=== PATIENT | male | born 1945 | race Caucasian/White ===

== ENCOUNTER 2020-06-17 10:41 | Outpatient (CLI) | payer MEDICARE, MEDICAID, SELFPAY ==
--- NOTE | 2020-06-17 10:55 | XR_ITS ---
WS: [id number] FOOT RIGHT TECHNIQUE: 3 views of the right foot CLINICAL INFORMATION: PAIN IN FOOT, HEEL PAIN COMPARISON: None. FINDINGS: Hallux valgus. Mild degenerative arthritis in the mid foot at the TMT joints. Normal phalanges. No ac brayden fractures. Plantar calcaneal spurring. Achilles enthesophyte. XR/XR foot RT min 3V* [id number] IMPRESSION: 1. Plantar calcaneal spurring with Achilles enthesophyte. 2. Hallux valgus. 3. No acute fractures.
== END 2020-06-17 10:42 | disposition home or self-care (01) ==
LOC: RADWPI 10:50
PROVIDERS: PCP Internal Medicine; Visit Provider Nurse Practitioner Family
DX: M79.671 Pain in right foot (principal); M77.31 Calcaneal spur, right foot; M76.61 Achilles tendinitis, right leg; M20.11 Hallux valgus (acquired), right foot
CPT/HCPCS: 73630

== ENCOUNTER → 2020-07-30 09:52 | Outpatient (BNVA) | payer MEDICARE, MEDICAID, SELFPAY | PROVIDERS: PCP Internal Medicine; Referring Provider Nurse Practitioner Family; Visit Provider Podiatrist Foot & Ankle Surgery | DX: M19.071 Primary osteoarthritis, right ankle and foot (principal); M79.671 Pain in right foot | CPT/HCPCS: 73630 ==

== ENCOUNTER 2020-09-08 09:04 | Outpatient (CLI) | payer MEDICARE, MEDICAID, SELFPAY | END 2020-09-08 09:05 | disposition home or self-care (01) | LOC: SPT 09:04 | PROVIDERS: PCP Internal Medicine; Visit Provider Podiatrist Foot & Ankle Surgery | DX: Z46.89 Encounter for fitting and adjustment of other specified devices (principal); M65.28 Calcific tendinitis, other site | CPT/HCPCS: 97760; L4397 ==

== ENCOUNTER 2022-07-21 10:53 | Outpatient (CLI) | payer MEDICARE, MEDICAID, SELFPAY ==
--- NOTE | 2022-07-21 11:12 | XR_ITS ---
WS: [id number] Right hip, AP and frog-leg views, 07/21/2022 Clinical Data: PAIN IN RIGHT HIP Comparison: Pelvis and left hip, 07/16/2019. Findings: No fractures or dislocations are seen. There is mild narrowing with sclerosis of the adjoining acetab ulum. There is an acetabular lip. The adjacent pelvis shows no abnormalities. The soft tissues are no rmal. XR/XR hip RT 2-3V wo/w pel* [id number] Impression: Moderate osteoarthritis of the right hip. Tonnis classification: grade 2: small cysts in femoral head/acetabulum or moder ate joint space narrowing or moderate loss of head sphericity
== END 2022-07-21 10:54 | disposition home or self-care (01) ==
PROVIDERS: PCP Nurse Practitioner Family; Visit Provider Nurse Practitioner Family
DX: M16.11 Unilateral primary osteoarthritis, right hip (principal)
CPT/HCPCS: 73502

== ENCOUNTER → 2022-08-04 07:23 | Outpatient (BNVA) | payer MEDICARE, MEDICAID, SELFPAY | PROVIDERS: PCP Nurse Practitioner Family; Visit Provider Orthopaedic Surgery | DX: M16.11 Unilateral primary osteoarthritis, right hip (principal) | CPT/HCPCS: 99203 ==

== ENCOUNTER → 2022-09-08 07:57 | Outpatient (BNVA) | payer MEDICARE, MEDICAID, SELFPAY | PROVIDERS: PCP Nurse Practitioner Family; Referring Provider Orthopaedic Surgery; Visit Provider Anesthesiology Pain Medicine | DX: M54.16 Radiculopathy, lumbar region (principal); M16.11 Unilateral primary osteoarthritis, right hip | CPT/HCPCS: 72110; 99204 ==

== ENCOUNTER 2022-09-13 07:02 | Outpatient (CLI) | payer MEDICARE, MEDICAID, SELFPAY ==
--- NOTE | 2022-09-13 07:32 | USCV_ITS ---
Spencer Cramer Age: 76 Gender: M : 1945 Exam Date: 09/13/2022 08:03 Ordering Phys: Jennifer Davila Technologist: Armando Reina Exam Location: [facility] [place] Indication: prosthetic heart valve, chest pain BP: 160 / 80 HR: 80 Rhythm: Other Technical Quality: Adequate MEASUREMENTS (Male / Female) Normal Values 2D ECHO LV Diastolic Diameter PLAX 2.8 cm 4.2 - 5.9 / 3.9 - 5.3 cm LV Systolic Diameter PLAX 1.7 cm IVS Diastolic Thickness 1.0 cm 0.6 - 1.0 / 0.6 - 0.9 cm IVS Systolic Thickness 1.3 cm LVPW Diastolic Thickness 1.2 cm 0.6 - 1.0 / 0.6 - 0.9 cm LVPW Systolic Thickness 1.7 cm LVOT Diameter 2.0 cm LV Ejection Fraction 2D Teich 69.8 % LV Ejection Fraction MOD 2C 64.5 % LV Ejection Fraction 2C AL 63.4 % LA Diameter 3.7 cm LA Width 3.2 cm LA Height 5.3 cm RA Width 3.0 cm RA Height 4.7 cm Aorta at Sinotubular Diameter 2.4 cm IVC Diameter 1.7 cm M-MODE Aortic Annulus Diameter 2.6 cm LA Ao Ratio MM 1.5 MV E Point Septal Separation 0.7 cm DOPPLER AV Peak Velocity 215.2 cm/s LVOT Peak Velocity 93.0 cm/s AV Area Cont Eq vti 1.5 cm squared AV Area Cont Eq pk 1.4 cm squared MV Peak Velocity 178.0 cm/s MV Area PHT 6.3 cm squared MV E' Velocity 80.8 cm/s Mitral E to MV E' Ratio 8.1 Mitral E to LV E' Lateral Ratio 6.9 Mitral E to LV E' Septal Ratio 10.0 TR Peak Velocity 224.4 cm/s TR Peak Gradient 20.1 mmHg TR Mean Velocity 166.1 cm/s TR Mean Gradient 12.0 mmHg TR Velocity Time Integral 42.5 cm Right Atrial Pressure 3.0 mmHg Pulmonary Artery Systolic Pressu 23.1 mmHg PV Peak Velocity 93.0 cm/s RV Acceleration Time 0.1 s RV Ejection Time 0.2 s RV AcT/ET 0.5 FINDINGS Left Ventricle Normal left ventricular size and systolic function, EF 68 %. Moderate concentric left ventricular hypertrophy. No regional wall motion abnormalities. Right Ventricle Mildly dilated right ventricle with normal ejection fraction Right Atrium Mildly dilated Left Atrium Normal left atrial size. Mitral Valve Trace mitral valve regurgitation. Aortic Valve Bioprosthetic valve is aortic position appears to be well- seated. Peak velocity at the aortic valve was 2. 2 M/s with a peak gradient of 20 and a mean gradient of 11 mmHg Tricuspid Valve Mild tricuspid valve regurgitation. Pulmonic Valve Pulmonic valve not well visualized. Pericardium No pericardial effusion. Aorta Normal aortic annulus size. IVC Normal inferior vena cava. CONCLUSIONS Normal left ventricular size and systolic function, EF 68 %. Moderate concentric left ventricular hypertrophy. No regional wall motion abnormalities. Bioprosthetic valve is aortic position appears to be well- seated. Peak velocity at the aortic valve was 2. 2 M/s with a peak gradient of 20 and a mean gradient of 11 mmHg. The leaflets could not visualized well Mild tricuspid valve regurgitation. Trace mitral valve regurgitation. There is no pericardial effusion. There are no intracardiac masses. No similar previous studies are available for comparison Dr King Rodriguez MD [facility] (Electronically Signed) Final Date: 13 September 2022 20:00 S
== END 2022-09-13 07:03 | disposition home or self-care (01) ==
LOC: RAD 07:02
PROVIDERS: PCP Nurse Practitioner Family; Visit Provider Nurse Practitioner Family
DX: I08.1 Rheumatic disorders of both mitral and tricuspid valves (principal); R07.89 Other chest pain; Z95.2 Presence of prosthetic heart valve
CPT/HCPCS: 93306

== ENCOUNTER → 2022-09-21 13:13 | Outpatient (BNVA) | payer MEDICARE, MEDICAID, SELFPAY | PROVIDERS: PCP Nurse Practitioner Family; Visit Provider Anesthesiology Pain Medicine | DX: M16.11 Unilateral primary osteoarthritis, right hip (principal) | CPT/HCPCS: 20610; 77002; J1030; J3490 ==

== ENCOUNTER → 2022-10-13 08:54 | Outpatient (BNVA) | payer MEDICARE, MEDICAID, SELFPAY | PROVIDERS: PCP Nurse Practitioner Family; Visit Provider Orthopaedic Surgery | DX: M16.11 Unilateral primary osteoarthritis, right hip (principal) | CPT/HCPCS: 99213 ==

== ENCOUNTER → 2022-10-18 09:06 | Outpatient (BNVA) | payer MEDICARE, MEDICAID, SELFPAY | PROVIDERS: PCP Nurse Practitioner Family; Visit Provider Anesthesiology Pain Medicine | DX: M16.11 Unilateral primary osteoarthritis, right hip (principal); M54.16 Radiculopathy, lumbar region | CPT/HCPCS: 99213 ==

== ENCOUNTER → 2023-01-05 15:28 | Outpatient (BNVA) | payer MEDICARE, MEDICAID, SELFPAY | PROVIDERS: PCP Nurse Practitioner Family; Visit Provider Orthopaedic Surgery | DX: M16.11 Unilateral primary osteoarthritis, right hip (principal) | CPT/HCPCS: 99213 ==

== ENCOUNTER 2023-01-12 12:02 | Emergency (ER) | payer MEDICARE, MEDICAID, SELFPAY ==
[2023-01-12 12:30] VITALS: BP 103/65; PULSE 68; RESP 16; TEMP 36.8; O2SAT 95; BMI 29.2
[2023-01-12 13:53] LABS: Basophils % 0.4 %; Eosinophils # 0.1 10^3/uL (0.0-0.8); Eosinophils % 2.4 %; Hematocrit 39.3 % (42.0-52.0); Hemoglobin 12.8 g/dL (11.7-16.6); Lymphocytes # 1.9 10^3/uL (0.8-4.8); Lymphocytes % 37.1 %; Mean Corpuscular HGB Conc 32.6 g/dL (30.0-36.0); Mean Corpuscular Hemoglobin 30.8 pg (28.0-34.0); Mean Corpuscular Volume 94.7 fl (80-94); Mean Platelet Volume 10.3 fL (7.4-10.4); Monocytes # 0.5 10^3/uL (0.2-0.9); Monocytes % 10.2 %; Neutrophils # 2.47 10^3/uL (1.8-7.7); Neutrophils % 49.7 %; Nucleated Red Blood Cells % 0 %; Platelet Count 145 10^3/cmm (130-400); Red Blood Count 4.15 10^6/uL (4.1-5.3); Red Cell Distribution Width 13.4 % (12.1-15.1)
[2023-01-12 14:26] LABS: Alanine Aminotransferase 28 U/L (0-41); Albumin Level 3.5 g/dL (3.5-5.2); Alkaline Phosphatase 89 U/L (40-130); Anion Gap 12.6 (5-19); Aspartate Amino Transferase 25 U/L (0-40); Blood Urea Nitrogen 27 mg/dL (8-23); Carbon Dioxide 28 mmol/L (22-29); Chloride 98 mmol/L (98-107); Globulin 2.8 g/dL (1.3-4.6); Glucose 102 mg/dL (65-115); Osmolality Calculated 283 mOsm/kg (285-295); Potassium 4.6 mmol/L (3.5-5.1); Sodium 134 mmol/L (136-145); Total Bilirubin 0.4 mg/dL (0.15-1.2); Total Protein 6.3 g/dL (6.6-8.7)
--- NOTE | 2023-01-12 18:04 | ED_ITS ---
HPI - GI Bleed General: Chief complaint: GI Bleed Stated complaint: Blood in stool Time Seen by Provider: 01/12/23 18:04 History of Present Illness: Mr. Cramer is a 77-year-old gentleman who reports being on Eliquis presenting to the emergency department for blood in stool. He reports having some abdominal pain yesterday which has subsequently resolved. He noted blood with bowel movement that was nonpainful earlier this morning. Blood was noted mixed with the stool, in the toilet bowl, and also on the tissue. Denies chest pain, shortness of breath, other bruising or bleeding, no lightheadedness or dizziness. Denies similar episodes in the past. No other specific changes in health, exacerbating, or alleviating factors identified. Onset (ago): hour(s) Pain Consistency: now resolved Severity: moderate Relieving factors: none Exacerbating factors: none Associated symptoms: Reports other Review of Systems General: Reports: 10 or more systems reviewed and unremarkable except in HPI and below PFSH ED PFSH: Medical History Dyslipidemia Hearing aid fitting or adjustment Hypertension Obesity Social History Smoking and tobacco status: never smoked Alcohol intake: never Physical Exam Const: COMMON NORMALS: alert GENERAL APPEARANCE: cooperative and well developed HENMT: COMMON NORMALS: normocephalic and atraumatic HEAD & SCALP: normocephalic and atraumatic Eye: COMMON NORMALS: conjunctivae normal CONJUNCTIVA: Yes conjunctivae normal SCLERA: sclerae normal Neck/C-Spine: COMMON NORMALS: supple GENERAL: Yes trachea midline Resp: COMMON NORMALS: clear to auscultation bilaterally EFFORT & INSPECTION: Yes able to speak in complete sentences AUSCULTATION: clear to auscultation bilaterally Cardio: COMMON NORMALS: regular rate and regular rhythm RATE: regular rate RHYTHM: regular rhythm GI: COMMON NORMALS: Soft to palpation PALPATION: Yes Soft to palpation and No Tenderness to palpation present (GI) RECTAL EXAM: Yes normal sphincter tone, Yes heme negative stool, No Anal fissure(s) present and No tenderness 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: 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 Extremity: GENERAL: Yes normal exam except as noted and No edema Neuro: COMMON NORMALS: moves all extremities SENSORIUM/ORIENTATION: Yes alert and No Orientation impaired Psych: COMMON NORMALS: mental status grossly normal and Normal thought process present THOUGHT PROCESS: Normal thought process present Course Vital Signs: Vital signs: Vital Signs Temperature 98.2 F 01/12/23 19:49 Pulse Rate 62 01/12/23 19:49 Respiratory Rate 16 01/12/23 19:49 Blood Pressure 152/53 01/12/23 19:49 Pulse Oximetry 97 01/12/23 19:49 Oxygen Delivery Me thod Room Air 01/12/23 19:22 MDM - GI Bleed Medical Decision Making 77-year-old male recently on Eliquis presenting due to episode of blood in stool. Exam as above. Normal hemoglobin without other significant abnormality on hematologic panel. Metabolic panel with perhaps mild dehydration. CT with constipation, incidental findings discussed with patient. Guaiac negative and patient remains vitally satisfactory. The results of ED evaluation were discussed with the patient including prescriptions and/or symptomatic cares (if applicable) including appropriate and responsible use, followup plan, and return precautions. The patient verbalized understanding and felt safe for discharge. Medical Records I reviewed the patient's medical records. Lab Data I reviewed the patient's lab results. 01/12/23 13:41 01/12/23 13:41 Radiology Impressions Abdomen/Pelvis CT 01/12/23 18:18 IMPRESSION: 1. Small bilateral renal cortical cyst is suggested. 2. Stool content throughout the colon and correlate clinically for constipation. 3. Atherosclerotic vascular disease. 4. Mild prostate enlargement with prostate calcifications, likely chronic. 5. No acute findings, otherwise. COMMENTS: Consistent with the [employer]'s Incidental Findings Committee white paper (J Am Christina Radiol 2018): Any incidental renal lesion less than 1 cm or classified as too small to characterize, or any incidental cystic renal lesion characterized as simple-appearing, is likely benign. No follow-up imaging is recommended for these lesions per consensus recommendations based on imaging criteria. Laboratory Results WBC 5.0 10^3/uL (4.0-10.0) 01/12/23 13:41 RBC 4.15 10^6/uL (4.1-5.3) 01/12/23 13:41 Hgb 12.8 g/dL (11.7-16.6) 01/12/23 13:41 Hct 39.3 % (42.0-52.0) L 01/12/23 13:41 MCV 94.7 fl (80-94) H 01/12/23 13:41 MCH 30.8 pg (28.0-34.0) 01/12/23 13:41 MCHC 32.6 g/dL (30.0-36.0) 01/12/23 13:41 RDW 13.4 % (12.1-15.1) 01/12/23 13:41 Plt Count 145 10^3/cmm (130-400) 01/12/23 13:41 MPV 10.3 fL (7.4-10.4) 01/12/23 13:41 Neut % (Auto) 49.7 % 01/12/23 13:41 Lymph % (Auto) 37.1 % 01/12/23 13:41 Todd % (Auto) 10.2 % 01/12/23 13:41 Eos % (Auto) 2.4 % 01/12/23 13:41 Baso % (Auto) 0.4 % 01/12/23 13:41 Neut # (Auto) 2.47 10^3/uL (1.8-7.7) 01/12/23 13:41 Lymph # (Auto) 1.9 10^3/uL (0.8-4.8) 01/12/23 13:41 Todd # (Auto) 0.5 10^3/uL (0.2-0.9) 01/12/23 13:41 Eos # (Auto) 0.1 10^3/uL (0.0-0.8) 01/12/23 13:41 Baso # (Auto) 0.0 10^3/uL (0.0-0.1) 01/12/23 13:41 Nucleated RBC % (auto) 0 % 01/12/23 13:41 Nucleated RBCs # 0.0 /100WBC 01/12/23 13:41 Sodium 134 mmol/L (136-145) L 01/12/23 13:41 Potassium 4.6 mmol/L (3.5-5.1) 01/12/23 13:41 Chloride 98 mmol/L (98-107) 01/12/23 13:41 Carbon Dioxide 28 mmol/L (22-29) 01/12/23 13:41 Anion Gap 12.6 (5-19) 01/12/23 13:41 BUN 27 mg/dL (8-23) H 01/12/23 13:41 Creatinine 1.0 mg/dL (0.7-1.2) 01/12/23 13:41 GFR Calculation Not Reportable 01/12/23 13:41 Glucose 102 mg/dL (65-115) 01/12/23 13:41 Calculated Osmolality 283 mOsm/kg (285-295) L 01/12/23 13:41 Calcium 9.0 mg/dL (8.5-10.5) 01/12/23 13:41 Total Bilirubin 0.4 mg/dL (0.15-1.2) 01/12/23 13:41 AST 25 U/L (0-40) 01/12/23 13:41 ALT 28 U/L (0-41) 01/12/23 13:41 Alkaline Phosphatase 89 U/L (40-130) 01/12/23 13:41 Total Protein 6.3 g/dL (6.6-8.7) L 01/12/23 13:41 Albumin 3.5 g/dL (3.5-5.2) 01/12/23 13:41 Globulin 2.8 g/dL (1.3-4.6) 01/12/23 13:41 Blood Type O Positive 01/12/23 13:41 Rho(D) Type Positive 01/12/23 13:41 Antibody Screen Negative 01/12/23 13:41 Discharge Plan Discharge Patient Disposition: Home Clinical Impression: Bleeding per rectum, Constipation, Anticoagulant long-term use Condition: Stable Prescriptions: New Miralax 17 gram powder in packet 17 g PO DAILY Qty: 30 0RF No Action diclofenac sodium [Voltaren] 1 % gel 4 gm TOPICAL QID Qty: 100 3RF Rx Instructions: apply to single knee, ankle, foot; for foot includes sole/toes/top of foot metoclopramide HCl 10 mg tablet 10 mg PO Q6H PRN simvastatin 20 mg tablet 20 mg PO DAILY travoprost [Travatan Z] 0.004 % drops ophthalmic (eye) (DME) Night Splint See Rx Instructions .Route .MEDSUPPLY Qty: 1 0RF Rx Instructions: As directed hydrocortisone 2.5 % cream 1 applic topical BID Qty: 30 0RF Rx Instructions: to affected area on ear x 2 weeks turmeric root extract 500 mg capsule 500 mg PO DAILY cholecalciferol (vitamin D3) 25 mcg (1,000 unit) capsule 25 mcg PO DAILY baclofen 10 mg tablet PO tamsulosin 0.4 mg capsule PO tramadol 50 mg tablet PO gabapentin 600 mg tablet PO celecoxib 200 mg capsule 200 mg PO prednisone 10 mg tablet 10 mg PO DAILY Qty: 60 0RF Rx Instructions: Take 5 tabs by mouth for 4 days, then 4 tabs x 4 days, 3 tabs x 4 days, 2 tabs x 4 days, then 1 tab x 4 days albuterol sulfate 90 mcg/actuation HFA aerosol inhaler 1 puff inhalation Q4H PRN (Reason: shortness of breath or wheezing) allopurinol 300 mg tablet 150 mg PO DAILY aspirin 81 mg tablet,delayed release (DR/EC) 81 mg PO DAILY lisinopril 5 mg tablet 5 mg PO DAILY omeprazole 20 mg capsule,delayed release(DR/EC) 20 mg PO DAILY polyethylene glycol 3350(bulk) [Base B,Polyethylene [id number]] Granules miscellaneous trazodone 150 mg tablet 150 mg PO DAILY methylprednisolone acetate [Depo-Medrol] 40 mg/mL suspension 40 mg Infiltration ONCE Qty: 1 0RF bupivacaine (PF) 0.25 % (2.5 mg/mL) solution 2 ml Infiltration ONCE Qty: 1 0RF clobetasol 0.05 % cream 1 applic topical BID 14 Days Qty: 60 2RF Rx Instructions: Apply twice daily to affected areas no more than 2 weeks per month triamcinolone acetonide 0.1 % ointment 1 applic topical TID Qty: 453.6 2RF Rx Instructions: To affected areas on arms, legs, trunk until followup Discharge Orders: Discharge ED (Routine); Ordered 01/12/23 Ordered By: Ziyad Gaines Referrals: Jennifer Davila FNP [Primary Care Provider] - Discharge Diet: Advance as tolerated and Clear Liquid Discharge Activity: Increase activity as tolerated Patient Instructions: Constipation (ED), Rectal Bleeding (ED) Activity Restrictions/Additional Instructions: Thank you for visiting the emergency department. You were seen and evaluated f or blood per rectum, the exact cause of your symptoms is unclear though given physical exam, imaging, vital signs, and laboratory studies does not appear to need hospitalization at this time. Please follow-up with your primary care provider. You may be referred for endoscopy if not previously obtained. Return to the emergency department for lightheadedness, recurrent bleeding, abdominal pain, shortness of breath, chest pain, or anything else that you are concerned about and feel needs emergency department evaluation. Coding Level of Care Code ED Teacher Visually Impaired for Nae Gordon
[2023-01-12 18:06] VITALS: BP 125/68; O2SAT 99
--- NOTE | 2023-01-12 18:18 | CTR_ITS ---
PROCEDURE INFORMATION: Exam: CT Abdomen And Pelvis With Contrast Exam date and time: 01/12/2023 6:39 PM Age: 77 years old Clinical indication: Abdominal pain; Generalized; Additional info: Blood in stool, abd pain TECHNIQUE: Imaging protocol: Computed tomography of the abdomen and pelvis with contrast. Radiation optimization: All CT scans at this facility use at least one of these dose optimization techniques: automated exposure control; mA and/or kV adjustment per patient size (includes targeted exams where dose is matched to clinical indication); or iterative reconstruction. Contrast material: OMNI 350; Contrast volume: 100 ml; Contrast route: INTRAVENOUS (IV); REPORTING DATA: Count of CT and Cardiac NM exams in prior 12 months: This patient has received 0 known CTs and 0 known cardiac nuclear medicine studies in the 12 months prior to the current study. COMPARISON: CR XR hip RT 2-3V wo/w pel* [id number] 07/21/2022 11:19 AM RADIATION DOSE METRICS: Total DLP (mGy-cm): 879.03 FINDINGS: Lungs: No infiltrate or effusion within the lung bases. Stent graft material at the aortic valve. Liver: Normal. No mass. Gallbladder and bile ducts: Normal. No calcified stones. No ductal dilation. Pancreas: Normal. No ductal dilation. Spleen: Normal. No splenomegaly. Adrenal glands: Normal. No mass. Kidneys and ureters: Small rounded hypodense focus within the upper pole cortex of the right kidney and small rounded exophytic hypodense focus from the midpole of the left kidney are seen, at or slightly greater than 1 cm in size and with suggestion of fluid density with Hounsfield measurements. Findings suggest small renal cysts. Kidneys are otherwise unremarkable. Stomach and bowel: Stool content throughout the colon and correlate clinically for constipation. No bowel obstruction. No CT findings of significant diverticulosis or diverticulitis. Perirectal fat planes appear unremarkable. Appendix: No evidence of appendicitis. Intraperitoneal space: Unremarkable. No free air. No significant fluid collection. Vasculature: Atherosclerotic vascular calcification of the abdominal aorta and tributaries, with unremarkable caliber of the abdominal aorta. Lymph nodes: Unremarkable. No enlarged lymph nodes. Urinary bladder: Unremarkable as visualized. Reproductive: Prostate gland is mildly enlarged with prostate calcifications usually associated with chronic prostatitis appearance. Bones/joints: Left hip prosthesis noted with secondary streak artifact around this region within the pelvis. Degenerative bony changes. Soft tissues: Unremarkable. CT/CT abdomen pelvis w con* [id number] IMPRESSION: 1. Small bilateral renal cortical cyst is suggested. 2. Stool content throughout the colon and correlate clinically for constipation. 3. Atherosclerotic vascular disease. 4. Mild prostate enlargement with prostate calcifications, likely chronic. 5. No acute findings, otherwise. COMMENTS: Consistent with the [employer]'s Incidental Findings Committee white paper (J Am Christina Radiol 2018): Any incidental renal lesion less than 1 cm or classified as too small to characterize, or any incidental cystic renal lesion characterized as simple-appearing, is likely benign. No follow-up imaging is recommended for these lesions per consensus recommendations based on imaging criteria.
[2023-01-12 19:22] VITALS: BP 152/53; PULSE 62; RESP 16; O2SAT 97
[2023-01-12 19:49] VITALS: BP 152/53; PULSE 62; RESP 16; TEMP 36.8; O2SAT 97
== END 2023-01-12 19:50 | disposition home or self-care (01) ==
PROVIDERS: Emergency Medicine; Emergency Provider Emergency Medicine; PCP Nurse Practitioner Family
DX: K62.5 Hemorrhage of anus and rectum (principal); K59.00 Constipation, unspecified; Z79.01 Long term (current) use of anticoagulants; Z79.82 Long term (current) use of aspirin; E78.5 Hyperlipidemia, unspecified; I10 Essential (primary) hypertension
CPT/HCPCS: 36415; 74177; 80053; 85025; 86850; 86900; 99285; Q9967

== ENCOUNTER 2023-01-31 13:39 | Outpatient (CLI) | payer MEDICARE, MEDICAID, SELFPAY | END 2023-01-31 13:40 | disposition home or self-care (01) | LOC: RT 02-09 13:42 | PROVIDERS: PCP Nurse Practitioner Family; Visit Provider Orthopaedic Surgery | DX: Z01.818 Encounter for other preprocedural examination (principal) | CPT/HCPCS: 93005 ==

== ENCOUNTER 2023-02-07 12:05 | Observation (INO) | payer MEDICARE, MEDICAID, SELFPAY ==
[2023-01-31 10:04] VITALS: BMI 27.4
--- NOTE | 2023-01-31 10:07 | ECG_ITS ---
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 Measurements Intervals [place] Rate: 52 P: 0 CO: 0 QRS: -43 QRSD: 140 T: 88 QT: 427 QTc: 397 Interpretive Statements ATRIAL FIBRILLATION WITH SLOW VENTRICULAR RESPONSE WITH ABERRANT CONDUCTION OR VENTRICULAR PREMATURE COMPLEXES RIGHT BUNDLE BRANCH BLOCK [120+ ms QRS DURATION, UPRIGHT V1, 40+ ms S IN I/aVL/V4/V5/V6] POSSIBLE ANTERIOR MYOCARDIAL INFARCTION , OF INDETERMINATE AGE [30 ms Q WAVE IN V3/V4, OR R < 0.2 mV IN V4] INFERIOR MYOCARDIAL INFARCTION , PROBABLY OLD [40+ ms Q WAVE AND/OR ST/T ABNORMALITY IN II/aVF] No previous ECG available for comparison Electronically Signed On 02-02-2023 0:25:46 CDT by King Rodriguez M.D. [id number]
--- NOTE | 2023-01-31 10:31 | ANES.PREANE2 ---
Pre-Anesthetic Assessment Height/Weight: Height 1.68 m Weight 77.111 kg Operation Date: 02/07/23 13:35 Proposed Procedures p right total hip arthroplasty/ 14516,M16.11(Right) - Sushant Neves MD Familial anesthetic complications: None Social Tobacco (chews) and No alcohol Exam alert, oriented x 3, clear to auscultation bilaterally and regular rate & rhythm Airway Mallampati: Class II Dentition: full Pulmonary Asthma CV/HEM Atrial Fibrillation and Hypertension bioprosthetic valve Cleared for surgery by Dr. 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) in [place] GI Gastroesophageal Reflux Disease Metabolic Hyperlipidemia Anesthetic Plan ASA status: 3 Anesthesia: Regional (specify below) Risk of > 500 ml blood loss (7ml/kg in children): Yes, adequate IV access and fluids planned Medications/Allergies Home Medications Medication Instructions Recorded Confirmed Last Taken Type diclofenac sodium 1 % topical gel 4 gm topical QID #100 grams 07/30/20 01/31/23 01/30/23 Rx (Voltaren) metoclopramide HCl 10 mg tablet 10 mg PO Q6H PRN Nausea 07/30/20 01/31/23 01/30/23 20:00 History simvastatin 20 mg tablet 20 mg PO DAILY 07/30/20 01/31/23 01/31/23 History travoprost 0.004 % eye drops 0.004 drp ophthalmic (eye) 2XD 07/30/20 01/31/23 01/31/23 History (Travatan Z) Night Splint #1 ea 09/08/20 01/05/23 Unknown Rx hydrocortisone 2.5 % topical cream 1 applic topical BID #30 grams 07/21/21 01/31/23 Unknown Rx prednisone 10 mg tablet 10 mg PO DAILY #60 tabs 08/31/21 01/31/23 01/31/23 Rx baclofen 10 mg tablet 10 mg PO 1XD 04/19/22 01/31/23 01/30/23 20:00 History celecoxib 200 mg capsule 200 mg PO 1XD 04/19/22 01/31/23 01/30/23 History cholecalciferol (vitamin D3) 25 25 mcg PO DAILY 04/19/22 01/31/23 01/31/23 History mcg (1,000 unit) capsule gabapentin 600 mg tablet 600 mg PO 1XD 04/19/22 01/31/23 01/30/23 20:00 History tamsulosin 0.4 mg capsule 0.4 mg PO 1XD 04/19/22 01/31/23 01/31/23 History tramadol 50 mg tablet 50 mg PO PRN 04/19/22 01/31/23 01/31/23 History turmeric root extract 500 mg 500 mg PO DAILY 04/19/22 01/31/23 01/31/23 History capsule albuterol sulfate 90 mcg/actuation 1 puff inhalation Q4H PRN 09/08/22 01/31/23 01/27/22 History aerosol inhaler shortness of breath or wheezing allopurinol 300 mg tablet 150 mg PO DAILY 09/08/22 01/31/23 01/31/23 History aspirin 81 mg tablet,delayed 81 mg PO DAILY 09/08/22 01/31/23 01/31/23 History release lisinopril 5 mg tablet 5 mg PO DAILY 09/08/22 01/31/23 01/31/23 08:00 History omeprazole 20 mg capsule,delayed 20 mg PO DAILY 09/08/22 01/31/23 01/30/23 20:00 History release polyethylene glycol 3350(bulk) ea miscellaneous 09/08/22 01/05/23 Unknown History (Base B, Polyethylene Glycol 3350 granules) trazodone 150 mg tablet 150 mg PO DAILY 09/08/22 01/31/23 01/30/23 History clobetasol 0.05 % topical cream 1 applic topical BID 2 weeks #60 10/18/22 01/31/23 01/31/23 Rx grams triamcinolone acetonide 0.1 % 1 applic topical TID #453.6 grams 10/18/22 01/31/23 Unknown Rx topical ointment polyethylene glycol 3350 17 gram 17 g PO DAILY #30 ea 01/12/23 01/31/23 01/31/23 Rx oral powder packet (Miralax) apixaban 5 mg tablet (Eliquis) 5 mg PO 2XD 01/31/23 01/31/23 01/31/23 History Allergies Allergy/AdvReac Type Severity Reaction Status Date / Time No Known Allergies Allergy Verified 01/05/23 15:33 PFSH Anesthesia Medical History Dyslipidemia Hearing aid fitting or adjustment Hypertension Obesity Social History Smoking and tobacco status: never smoked Alcohol intake: never Data Anesthesia 01/31/23 10:15 Cardiac Studies: Echocardiogram 09/13/22
[2023-01-31 10:41] LABS: Anion Gap 11.9 (5-19); Blood Urea Nitrogen 23 mg/dL (8-23); Calcium 9.5 mg/dL (8.5-10.5); Carbon Dioxide 30 mmol/L (22-29); Chloride 99 mmol/L (98-107); Glucose 86 mg/dL (65-115); Osmolality Calculated 285 mOsm/kg (285-295); Potassium 4.9 mmol/L (3.5-5.1); Sodium 136 mmol/L (136-145)
[2023-02-07] VITALS (19 sets, daily range): BP systolic 92–138; BP diastolic 48–71; PULSE 65–92; RESP 13–18; TEMP 36.2–36.9; O2SAT 91–100
[2023-02-07] MEDS: CELEcoxib 200 mg Capsule 400 MG PO (08:57)
[2023-02-07] MEDS: gabapentin 300 mg Capsule PO (08:57)
[2023-02-07] MEDS: oxyCODONE 20 mg ER (12 HR) Tablet PO (08:58)
[2023-02-07] MEDS: acetaminophen 500 mg Tablet 1000 MG PO ×2 (08:58→16:54)
[2023-02-07] MEDS: sodium chloride 0.9% 1,000 ML 30 ML IV (09:03)
--- NOTE | 2023-02-07 09:10 | ANES.PAUD2 ---
Documented by User: Cassandra Shaffer CRNA 02/07/23 09:14 Pre-Anesthetic Update Pre-Anesthetic Assessment: Date of Surgery/Procedure: 02/07/23 Preop Diagnosis: Osteoarthritis right hip Proposed Procedure: Operation Date: 02/07/23 09:35 Proposed Procedures p right total hip arthroplasty/ 24415,M16.11(Right) - Sushant Neves MD Changes from Pre-Anesthetic Assessment: none Last Intake: Intake Last Liquid Date 02/06/23 Last Liquid Time 14:00 Last Solid Date 02/06/23 Last Solid Time 14:00 Vitals: Temperature 98.5 F 02/07/23 07:53 Temperature Source Temporal Artery S can 02/07/23 07:53 Pulse Rate 65 02/07/23 07:53 Pulse Rhythm Irregular 02/07/23 08:15 Pulse Strength 3+ Normal 02/07/23 08:15 Respiratory Rate 18 02/07/23 07:53 Blood Pressure 121/48 02/07/23 07:53 Blood Pressure Neha n 72 02/07/23 07:53 Pulse Oximetry 96 02/07/23 07:53 Oxygen Delivery Me thod Room Air 02/07/23 08:15 Other Pertinent Information: Other Pertinent Information: No chewing tobacco in the last 18 hours. Patient sister at bedside states he received cardiac clearance ECHO indicates preserved EF. Patient and sister state they have referral to specialist d/t benign 95% blockage They are unsure if it is a vascular blockage or a mass, they again state he has received cardiac clearance and wore a Holter monitor for 14 days prior to clearance. Given clinical picture and echo we will proceed. Cardiac Studies: Echocardiogram 09/13/22 Documented by User: Benjamin Montez 02/07/23 13:44 Pre-Anesthetic Update Pre-Anesthetic Assessment: Date of Surgery/Procedure: 02/07/23 Cardiac Studies: Echocardiogram 09/13/22
--- NOTE | 2023-02-07 09:13 | W.PM.OPSFHP ---
Same Day Surgery H&P Indication for Procedure/HPI DATE OF PROCEDURE: February 07, 2023 CHIEF COMPLAINT/INDICATIONFOR SURGICAL PROCEDURE: Right hip here for total hip arthroplasty PREOP DIAGNOSIS: Osteoarthritis right hip PLANNED PROCEDURE: Operation Date: 02/07/23 09:35 Proposed Procedures p right total hip arthroplasty/ 16931,M16.11(Right) - Sushant Neves MD Old male here for right total hip arthroplasty. He states that he had an injection with Dr. Zacarias and states that it gave him relief for about 10 days.? He brings with him a journal where they note for the first few days absolutely 0 pain in the hip.? He does describe new problems out of burning pain and numbness in his right anterior thigh.? He describes continued inguinal and lateral hip pain.? He states he is spending most of his time in a wheel in a lift chair as a cause of significant pain with any time up on his feet.He has a history of a left total hip arthroplasty done by me 25 years ago, which he done very well with. Medications/Allergies* Home Medications Medication Instructions Recorded Confirmed Type metoclopramide HCl 10 mg tablet 10 mg PO Q6H PRN Nausea 07/30/20 01/31/23 History simvastatin 20 mg tablet 20 mg PO DAILY 07/30/20 01/31/23 History travoprost 0.004 % eye drops 0.004 drp ophthalmic (eye) 2XD 07/30/20 01/31/23 History (Travatan Z) baclofen 10 mg tablet 10 mg PO 1XD 04/19/22 01/31/23 History celecoxib 200 mg capsule 200 mg PO 1XD 04/19/22 01/31/23 History cholecalciferol (vitamin D3) 25 25 mcg PO DAILY 04/19/22 01/31/23 History mcg (1,000 unit) capsule gabapentin 600 mg tablet 600 mg PO 1XD 04/19/22 01/31/23 History tamsulosin 0.4 mg capsule 0.4 mg PO 1XD 04/19/22 01/31/23 History tramadol 50 mg tablet 50 mg PO PRN 04/19/22 01/31/23 History turmeric root extract 500 mg 500 mg PO DAILY 04/19/22 01/31/23 History capsule albuterol sulfate 90 mcg/actuation 1 puff inhalation Q4H PRN 09/08/22 01/31/23 History aerosol inhaler shortness of breath or wheezing allopurinol 300 mg tablet 150 mg PO DAILY 09/08/22 01/31/23 History aspirin 81 mg tablet,delayed 81 mg PO DAILY 09/08/22 01/31/23 History release lisinopril 5 mg tablet 5 mg PO DAILY 09/08/22 02/07/23 History omeprazole 20 mg capsule,delayed 20 mg PO DAILY 09/08/22 01/31/23 History release polyethylene glycol 3350(bulk) ea miscellaneous 09/08/22 01/05/23 History (Base B, Polyethylene Glycol 3350 granules) trazodone 150 mg tablet 150 mg PO DAILY 09/08/22 01/31/23 History apixaban 5 mg tablet (Eliquis) 5 mg PO 2XD 01/31/23 01/31/23 History Allergies/Adverse Reactions Allergy/AdvReac Type Severity Reaction Status Date / Time No Known Allergies Allergy Verified 01/05/23 15:33 Current Medications: Generic Name Dose Route Start Last Admin Trade Name Stephanie PRN Reason Stop Dose Admin Sodium Chloride 1,000 mls @ 30 mls/hr 02/07/23 07:45 02/07/23 09:03 Sodium Chloride 0.9% IV 02/08/23 07:44 30 mls/hr .Q24H LUCILA Administration Pertinent History/Comorbid Conditions* Medical History (Updated 01/20/23 @ 00:02 by ANDIE Roger) Dyslipidemia Hearing aid fitting or adjustment Hypertension Obesity Social History Smoking and tobacco status: never smoked Alcohol intake: never Pertinent Exam Findings alert, oriented x 3, clear to auscultation bilaterally, regular rate & rhythm and operative site marked HIP, [right] Tenderness anterior hip more so than lateral.? No posterior lumbar tenderness RANGE OF MOTION:? EXAMINED HIP ? Flexion: 90 ? Extrenal Rotation:20 ? Internal Rotation: Neutral ? Pain with all extremes of motion Recommendations Surgery/Procedure today Coding Level of Care Code Acute Code for Chg Fwd Diagnoses
[2023-02-07] MEDS: ceFAZolin 2,000 MG in sodium chloride 0.9% (plus) 50 ML 100 MG IV ×2 (09:50→16:51)
[2023-02-07] MEDS: sodium chloride 0.9% 100 mL Bag XX (10:41)
--- NOTE | 2023-02-07 11:25 | PM.OP ---
Operative Report Date of procedure: February 07, 2023 Pre-op diagnosis: Preop Diagnosis Osteoarthritis right hip Post-op diagnosis: same Post-op diagnosis: Same Procedure done: [] total hip arthroplasty Implants: 1) Perry 52 mm Trident 2 solid back acetabular shell 2) Size 5 Vahid 127 degree neck angle Accolade 2 stem 3} 28mm -2.7 standard ceramic femoral head 4} size E MDM metal liner Pathology: none sent Surgeon: Sushant Neves Munitions Handler: Nhan Kc Munitions Handler: The nurse practitioner assisted with critical portions of the case including positioning, exposure, implantation of components, closure, and postoperative abduction pillow application. Anesthesia: General Estimated blood loss (mL): 400 Complications: None Findings: The patient had eburnated bone over the femoral head and superior acetabular Condition: stable Disposition: PACU Brief History: The patient is a 77-year-old female with progressive right hip pain attributable to osteoarthritis. He had temporary improvement with a corticosteroid injection. Due to anticoagulation he is not a candidate for anti-inflammatories. Pain was unsuccessfully controlled with Toradol and gabapentin. He elected to proceed with total hip arthroplasty to improve pain and function Procedure: The patient was taken to the operating room and anesthesia provided by the anesthesia service. The patient was placed in the lateral position on a pegboard. A timeout was performed. The patient was draped in the usual fashion. A 15 cm long incision was made beginning just proximal to the greater trochanter and extending posteriorly to a point just distal to the trochanter on the posterior border of the trochanter. Dissection was carried down with electrocautery through the subcutaneous fat to the fascia emily which was divided proximally and distally with curved scissors. The anterior two thirds of the gluteus medius and minimus were elevated off the hip with electrocautery. The capsule was divided in a H-like fashion. The hip was dislocated and a neck cut made just above the level of the lesser trochanter. Exposure of the acetabulum was facilitated with the acetabular retractors. Remnants of labrum and peripheral osteophytes were removed with electrocautery and a rongeur. A reamer 2 mm under the size the femoral head was utilized to ream medially to the base of the palm and are. Reaming was then increased in 1 mm intervals until a healthy rim a trabecular bone was encountered. The rim was touched with the reamer the size of the final acetabular shell to be placed. A final Trident 2 acetabular cup of the same size as the final reaming was press-fit into place. The ADM liner was secured. Attention was then focused on the femur. The canal was localized with a canal finder. Broaching was then accomplished until a stable broach size was obtained. A trial reduction with the head and neck provided excellent stability. The wound was irrigated with saline and antibiotic solution. The final Perry Accolade II stem was press-fit into place. The femoral head was placed and the hip was reduced. The hip was brought through range of motion and found to be free of impingement and stable. The anterior capsule was reapproximated with 1 Ethibond. The gluteus medius and minimus were repaired through bone with 5 Ethibond and reinforced with 1 Ethibond. The fascial emily was closed with a running 0 Stratafix suture. Deep pelvic tissues were closed with 2-0 Stratafix and the skin with a running 4-0 l Stratafix. The skin was covered with a Prineo dressing and op site dressings.
--- NOTE | 2023-02-07 11:35 | XRR_ITS ---
PROCEDURE INFORMATION: Exam: XR Right Hip Exam date and time: 02/07/2023 11:02 AM Age: 77 years old Clinical indication: Device placement; Other: Total hip arthroplasty; Prior surgery; Surgery date: Post-operative (0-2 days) TECHNIQUE: Imaging protocol: Radiologic exam of the right hip. Views: 1 view hip with pelvis when performed. COMPARISON: CT abdomen pelvis w con* [id number] 01/12/2023 6:39 PM FINDINGS: Bones/joints: Anatomic alignment of right hip arthroplasty. Soft tissues: Soft tissue prominence and skin fold. XR/XR hip RT 1V wo/w pel [id number] IMPRESSION: Anatomic alignment of right hip arthroplasty.
--- NOTE | 2023-02-07 11:53 | SUR.OPER ---
REDNESS NOTED AROUND BOTH EYES ONCE TAPE WAS REMOVED.
[2023-02-07] MEDS: fentaNYL 50 mcg/mL INJ 2mL IVP (12:14)
[2023-02-07] MEDS: sodium chloride 0.9% 1,000 ML 100 ML IV (14:07)
[2023-02-07] MEDS: baclofen 10 mg Tablet PO (14:07)
[2023-02-07 15:02] LABS: Glucose Point of Care 114 mg/dL (70-110)
--- NOTE | 2023-02-07 16:18 | ANE.PACU2 ---
Inpatient post-anesthesia follow up: Airway intact: Yes Vital signs: Temperature 97.1 F Pulse Rate 81 Respiratory Rate 18 Blood Pressure 97/64 Pulse Oximetry 96 Oxygen Delivery Me thod Room Air Oxygen Flow Rate 4 Fraction of Inspir ed Oxygen Hydration adequate: Yes Nausea and vomiting: No Pain level: 3 Mental status: Baseline Additional Comments: Bruising around eye from tape.
[2023-02-07] MEDS: sennosides-docusate Tablet 2 TAB PO (16:52)
[2023-02-07] MEDS: oxyCODONE 5 mg IR Tab/Cap PO ×2 (16:52→21:31)
--- NOTE | 2023-02-07 21:35 | PC.NURSE ---
Pt unable to verify home medications.
[2023-02-08] VITALS (8 sets, daily range): BP systolic 86–123; BP diastolic 32–66; PULSE 66–80; RESP 15–18; TEMP 36.4–36.8; O2SAT 90–98
[2023-02-08] MEDS: ceFAZolin 2,000 MG in sodium chloride 0.9% (plus) 50 ML 100 MG IV ×2 (01:27→09:40)
[2023-02-08] MEDS: acetaminophen 500 mg Tablet 1000 MG PO ×3 (01:28→17:07)
[2023-02-08] MEDS: oxyCODONE 5 mg IR Tab/Cap PO ×2 (01:34→05:21)
[2023-02-08] MEDS: sodium chloride 0.9% 1,000 ML 100 ML IV ×2 (01:35→09:40)
[2023-02-08] MEDS: ondansetron 2 mg/ML SDV 2 mL 4 MG IVP (05:21)
[2023-02-08 06:47] LABS: Hemoglobin 9.3 g/dL (11.7-16.6)
--- NOTE | 2023-02-08 08:09 | PM.PN ---
Subjective Subjective: Complains of some left-sided abdominal pain. Unable to pass a urine. Alonso catheter placed last night Vitals/I&O/Wt Last Vital Signs Temp 97.8 F 02/08/23 04:00 Pulse 68 02/08/23 04:00 Resp 16 02/08/23 05:21 BP 92/45 02/08/23 04:00 Pulse Ox 90 02/08/23 04:00 O2 Del Method Room Air 02/07/23 20:12 O2 Flow Rate 4 02/07/23 11:55 02/07/23 02/08/23 02/08/23 22:59 06:59 14:59 Intake Total 530 / 1130 1050 / 2180 Output Total 250 / 650 Balance 530 / 730 800 / 1530 Physical Exam Narrative: Right hip dressing clean and dry. Bowel sounds in all 4 quadrants. Urinary Catheter Management: Alonso: Cath Placed During This Visit: yes Reason for Continuing Indwelling Catheter: Acute Urinary Retention or Obstruction Urinary Catheter Date of Insertion: 02/07/23 Urinary Catheter Time of Insertion: 21:26 Data 02/08/23 06:40 01/31/23 10:15 A&P Assessment and plan (1) Status post right hip replacement: Continue to mobilize with therapy. (2) Urinary retention: Alonso placed last evening. Will discontinue as patient more mobile (3) Abdominal pain: Patient describes similar problems with last total hip improved with enema. We will begin Reglan for now. Attestations Medical Necessity Statement*: Awaiting SNF placement Coding Level of Care Code Acute Code for Chg Fwd Diagnoses Status post right hip replacement Z96.641 Urinary retention R33.9 Abdominal pain R10.9
--- NOTE | 2023-02-08 09:26 | PC.PHAR ---
pt states he has home health with [facility] [phone]-kim albright from [facility] states she will fax med list-medications entered are from what ext med history shows has been filled recently and from what the pt states he knew he took-when fax comes from [facility] will make sure it matches ext med history and whats entered
[2023-02-08] MEDS: CELEcoxib 200 mg Capsule PO (09:36)
[2023-02-08] MEDS: baclofen 10 mg Tablet PO (09:36)
[2023-02-08] MEDS: predniSONE 10 mg Tablet PO (09:36)
[2023-02-08] MEDS: sennosides-docusate Tablet 2 TAB PO ×2 (09:36→17:07)
[2023-02-08] MEDS: allopurinol 300 mg Tablet 150 MG PO (09:36)
[2023-02-08] MEDS: trazodone 150 mg Tablet PO (09:37)
[2023-02-08] MEDS: tamsulosin 0.4 mg Capsule PO (09:37)
[2023-02-08] MEDS: apixaban 5 mg Tablet PO ×2 (09:37→17:07)
[2023-02-08] MEDS: gabapentin 300 mg Capsule 600 MG PO (09:37)
[2023-02-08] MEDS: lisinopril 5 mg Tablet PO (09:38)
[2023-02-08] MEDS: pantoprazole DR 40 mg Tablet PO (09:38)
[2023-02-08] MEDS: aspirin 81 mg EC Tablet PO (09:38)
[2023-02-08] MEDS: atorvastatin 40 mg Tablet 20 MG PO (09:38)
[2023-02-08] MEDS: polyethylene glycol 3350 Pkt 17 gm PO (09:39)
--- NOTE | 2023-02-08 11:13 | PC.CHAP ---
Pastoral Care Encounter/Spiritual Assessment Type of Contact [] Declined license inspector visit [] Patient/Family/Request visit [] Outpatient visit [] Follow-up visit [] Physician referral [] Code/Alert [x] Routine visit [] Staff referral [] Actively dying [] Patient sleeping [] Family support [] [] Out of room [] Palliative care [] [] Receiving care in room [] Pre-surgical visit [] Trauma [] Long length of stay [] ICU visit [] Other: Relational/Emotional Strength [] Patient feels connected with others/family/visitors/staff [] Distress [] Loneliness/isolation [] Abandonment Spirituality of Patient [] Person of [place]lu[place] [] Attends Jewish of their [place] [] Believes in Prayer [] Reads Bible or Catholic materials [x] There are Spiritual issues to be addressed Intelligence Analyst Interventions [] Prayer [x] Active listening [x] Non-anxious presence [] Spiritual/emotional support [] Crisis/trauma care [] Spiritual counseling [] Bereavement support [] Provided bereavement packet [] Provided Bible/devotional materials [] Provided toy/stuffed animal, coloring book to patient or family member [] Provided Communion [] Anointing/[place] [] Salvation [] Completed spiritual assessment [] Other: Impact on Illness or Injury [] Angry [] Fearful [] Anxious [] Often cries [] Exhaustion [] Unable to work [] Unable to attend caodaism [] Unable to walk/stand [] Unable to read [] Unable to drive [] Unable to eat/drink [] Unable to sleep [] Unable to be with family [] Patient intubated [] Other: Summary Time spent with patient 5 min
--- NOTE | 2023-02-08 11:23 | PC.NURSE ---
1120 - Family states they brought in home medication Travopost eye gtts to be scanned into pharmacy. Pharmacy called, Arjun states they do not have medication downstairs, but it has been verified. Not located in pt med box/med room or other areas of floor.
[2023-02-08] MEDS: sodium chloride 0.9% 500 ML 999 ML IV (20:35)
[2023-02-09] MEDS: acetaminophen 500 mg Tablet 1000 MG PO ×3 (00:54→16:32)
[2023-02-09 04:00] VITALS: BP 91/49; PULSE 54; RESP 16; TEMP 36.3; O2SAT 93
[2023-02-09 08:00] VITALS: BP 102/58; PULSE 60; PULSE 73; RESP 16; RESP 17; TEMP 36.8; O2SAT 93; O2SAT 95
[2023-02-09] MEDS: sennosides-docusate Tablet 2 TAB PO ×2 (10:05→18:16)
[2023-02-09] MEDS: tamsulosin 0.4 mg Capsule PO (10:05)
[2023-02-09] MEDS: gabapentin 300 mg Capsule 600 MG PO (10:05)
[2023-02-09] MEDS: apixaban 5 mg Tablet PO ×2 (10:06→18:16)
[2023-02-09] MEDS: trazodone 150 mg Tablet PO (10:06)
[2023-02-09] MEDS: allopurinol 300 mg Tablet 150 MG PO (10:06)
[2023-02-09] MEDS: CELEcoxib 200 mg Capsule PO (10:07)
[2023-02-09] MEDS: atorvastatin 40 mg Tablet 20 MG PO (10:07)
[2023-02-09] MEDS: baclofen 10 mg Tablet PO (10:07)
[2023-02-09] MEDS: aspirin 81 mg EC Tablet PO (10:07)
[2023-02-09] MEDS: pantoprazole DR 40 mg Tablet PO (10:07)
[2023-02-09] MEDS: polyethylene glycol 3350 Pkt 17 gm PO (10:08)
[2023-02-09] MEDS: predniSONE 10 mg Tablet PO (10:08)
[2023-02-09 12:00] VITALS: BP 96/56; PULSE 70; RESP 16; TEMP 36.6; O2SAT 96
[2023-02-09 15:56] VITALS: BP 113/65; PULSE 68; RESP 17; TEMP 36.5; O2SAT 97
--- NOTE | 2023-02-09 16:56 | PM.PN ---
Subjective Subjective: Spencer has a little complaints with his right hip. He was up ambulating to the door of his room and back and is feeling better. He has been unable to void and a Alonso catheter has been placed. He states his abdominal pain is better and his p.o. intake has improved Vitals/I&O/Wt Last Vital Signs Temp 97.7 F 02/09/23 15:56 Pulse 68 02/09/23 15:56 Resp 17 02/09/23 15:56 BP 113/65 02/09/23 15:56 Pulse Ox 97 02/09/23 15:56 O2 Del Method Room Air 02/09/23 15:56 O2 Flow Rate 4 02/07/23 11:55 02/09/23 02/09/23 02/09/23 06:59 14:59 22:59 Intake Total 960 / 960 Output Total 925 / 925 Balance -925 / 2593.333 960 / 960 Physical Exam Narrative: Spencer's right hip incision is clean and free of drainage. His superficial dressing is removed Urinary Catheter Management: Alonso: Cath Placed During This Visit: yes, but has since been removed by the nurse Reason for Continuing Indwelling Catheter: Acute Urinary Retention or Obstruction Urinary Catheter Date of Insertion: 02/07/23 Urinary Catheter Time of Insertion: 21:26 Date Urinary Catheter Removed: 02/09/23 Time Urinary Catheter Discontinued: 06:28 Data 02/08/23 06:40 01/31/23 10:15 A&P Assessment and plan (1) Urinary retention: Alonso catheter was placed as well as continues to retain urine. We will plan on discharge with the Alonso to the long term (2) Status post right hip replacement: Is doing well with his hip. He has little help at home and we are awaiting long-term availability Attestations Medical Necessity Statement*: Awaiting long-term place Coding Level of Care Code Acute Code for Chg Fwd Diagnoses Urinary retention R33.9 Status post right hip replacement Z96.641
--- NOTE | 2023-02-09 17:11 | PC.NURSE ---
Notified Dr. Neves of patient having greater than 400 ml in bladder. Patient tried several times to void with no results. Dr. Neves order kang catheter to be placed. Patient is to discharge with catheter due to retention.
[2023-02-09 19:48] VITALS: BP 113/63; PULSE 61; RESP 16; TEMP 36.8; O2SAT 96
[2023-02-09 20:33] VITALS: PULSE 60; RESP 17; O2SAT 96
[2023-02-10] VITALS (8 sets, daily range): BP systolic 94–130; BP diastolic 38–73; PULSE 62–78; RESP 15–16; TEMP 36.4–36.7; O2SAT 95–98
[2023-02-10] MEDS: acetaminophen 500 mg Tablet 1000 MG PO ×2 (00:19→08:26)
[2023-02-10] MEDS: tamsulosin 0.4 mg Capsule PO (08:25)
[2023-02-10] MEDS: baclofen 10 mg Tablet PO (08:26)
[2023-02-10] MEDS: pantoprazole DR 40 mg Tablet PO (08:26)
[2023-02-10] MEDS: trazodone 150 mg Tablet PO (08:26)
[2023-02-10] MEDS: gabapentin 300 mg Capsule 600 MG PO (08:26)
[2023-02-10] MEDS: sennosides-docusate Tablet 2 TAB PO (08:26)
[2023-02-10] MEDS: apixaban 5 mg Tablet PO (08:27)
[2023-02-10] MEDS: CELEcoxib 200 mg Capsule PO (08:27)
[2023-02-10] MEDS: atorvastatin 40 mg Tablet 20 MG PO (08:27)
[2023-02-10] MEDS: aspirin 81 mg EC Tablet PO (08:27)
[2023-02-10] MEDS: allopurinol 300 mg Tablet 150 MG PO (08:27)
[2023-02-10] MEDS: predniSONE 10 mg Tablet PO (08:27)
[2023-02-10] MEDS: polyethylene glycol 3350 Pkt 17 gm PO (08:28)
--- NOTE | 2023-02-10 12:33 | P.DS_ITS ---
Discharge Providers Date of Admission: 02/07/23 12:05 Date of Discharge: February 10, 2023 Attending Provider at Admission: Sushant Neves MD Attending Provider at Discharge: Sushant Neves MD Primary Care Provider: SOHAN [place] Diagnoses at Discharge Discharge Diagnosis (1) Status post right hip replacement: Status: Acute (2) Urinary retention: Status: Acute Reason for Visit Reason for Visit: M16.11 Brief History: Is a 77-year-old male with progressive right hip pain unresponsive to conservative measures. Radiographs revealed severe degenerative changes of the right hip. He was admitted for elective right total hip arthroplasty Hospital Course Hospital Course The patient tolerated surgery well. Patient had persistent hypertension and that her SARA inhibitor was discontinued. Parents problems with urinary retention and ultimately a Alonso catheter was placed they were on her Eliquis and sequential compression dressings for DVT prophylaxis. The patient was mobilized with therapy beginning the day of surgery low progress. As patient had minimal assistance at home halfway transfer was chosen Physical Exam Narrative: On the day of discharge the hip incision was clean. The incision was free of drainage. They had no particular swelling about the thigh or distal. No distal neurovascular deficits were noted. Urinary Catheter Management: Alonso: Cath Placed During This Visit: yes, but has since been removed by the nurse Reason for Continuing Indwelling Catheter: Acute Urinary Retention or Obstruction Urinary Catheter Date of Insertion: 02/07/23 Urinary Catheter Time of Insertion: 21:26 Date Urinary Catheter Removed: 02/09/23 Time Urinary Catheter Discontinued: 06:28 Discharge Data Studies Completed and Pending Completed Studies During Hospitalization Category Date Time Status XR hip RT 1V wo/w pel [id number] Routine Exams 02/07/23 11:35 Completed Pending at discharge Category Date Time Status SARS Covid-2 Antigen Routine Lab 02/10/23 08:16 Uncollected Radiology Impressions Hip X-Ray 02/07/23 11:35 IMPRESSION: Anatomic alignment of right hip arthroplasty. Laboratory Results Hgb 9.3 g/dL (11.7-16.6) L 02/08/23 06:40 Sodium 136 mmol/L (136-145) 01/31/23 10:15 Potassium 4.9 mmol/L (3.5-5.1) 01/31/23 10:15 Chloride 99 mmol/L (98-107) 01/31/23 10:15 Carbon Dioxide 30 mmol/L (22-29) H 01/31/23 10:15 Anion Gap 11.9 (5-19) 01/31/23 10:15 BUN 23 mg/dL (8-23) 01/31/23 10:15 Creatinine 1.0 mg/dL (0.7-1.2) 01/31/23 10:15 GFR Calculation Not Reportable 01/31/23 10:15 Glucose 86 mg/dL (65-115) 01/31/23 10:15 POC Glucose 114 mg/dL (70-110) H 02/07/23 14:52 Calculated Osmolality 285 mOsm/kg (285-295) 01/31/23 10:15 Calcium 9.5 mg/dL (8.5-10.5) 01/31/23 10:15 Blood Type O Positive 02/07/23 08:35 Rho(D) Type Positive 02/07/23 08:35 Antibody Screen Negative 02/07/23 08:35 Vitals Last Vital Signs Temp 97.5 F L 02/10/23 11:28 Pulse 62 02/10/23 11:28 Resp 15 02/10/23 11:28 BP 111/54 02/10/23 11:28 Pulse Ox 98 02/10/23 11:28 O2 Del Method Room Air 02/10/23 11:28 O2 Flow Rate 4 02/07/23 11:55 Discharge Plan Discharge Patient Disposition: Xfer SNF Condition: Stable Prescriptions: New oxycodone 5 mg Tablet 5 mg PO Q4H PRN (Reason: Moderate Pain) 7 Days Qty: 30 0RF acetaminophen 500 mg Tablet 1,000 mg PO Q8H 14 Days Qty: 84 0RF Continued metoclopramide HCl 10 mg tablet 10 mg PO DAILY@12 simvastatin 20 mg tablet 20 mg PO DAILY (DME) Night Splint See Rx Instructions .Route .MEDSUPPLY Qty: 1 0RF Rx Instructions: As directed turmeric root extract 500 mg capsule 500 mg PO DAILY cholecalciferol (vitamin D3) 25 mcg (1,000 unit) capsule 25 mcg PO DAILY baclofen 10 mg tablet 10 mg PO BID PRN (Reason: Muscle Spasm) tamsulosin 0.4 mg capsule 0.4 mg PO DAILY gabapentin 600 mg tablet 600 mg PO DAILY celecoxib 200 mg capsule 200 mg PO DAILY albuterol sulfate 90 mcg/actuation HFA aerosol inhaler 1 puff inhalation Q4H PRN (Reason: shortness of breath or wheezing) allopurinol 300 mg tablet 300 mg PO DAILY aspirin 81 mg tablet,delayed release (DR/EC) 81 mg PO DAILY omeprazole 20 mg capsule,delayed release(DR/EC) 20 mg PO BID trazodone 150 mg tablet 150 mg PO BEDTIME Eliquis 5 mg tablet 5 mg PO BID dorzolamide-timolol 22.3-6.8 mg/mL drops 1 drp ophthalmic (eye) BID Rx Instructions: right eye Lumigan 0.01 % drops 1 drp ophthalmic (eye) BEDTIME triamcinolone acetonide 0.1 % ointment 1 applic TOPICAL TID PRN (Reason: unknown) polyethylene glycol 3350 17 gram/dose powder See Rx Instructions .ROUTE .COMPLEX Rx Instructions: alternates with one capful once a day then one-half capful the next day diclofenac sodium 1 % Gel 4 g TOPICAL QID PRN (Reason: Pain) Rx Instructions: apply to single knee, ankle, foot; for foot includes sole/toes/top of foot clobetasol 0.05 % cream See Rx Instructions .ROUTE .COMPLEX Rx Instructions: Apply twice daily to affected areas no more than 2 weeks per month prn Discontinued tramadol 50 mg tablet 50 mg PO Q4H PRN (Reason: Pain) lisinopril 5 mg tablet 5 mg PO DAILY Discharge Orders: Discharge Order (Routine); Ordered 02/10/23 Ordered By: Sushant Neves Referrals: [facility] [Outside] Sushant Neves MD [Physician] - 1 month Discharge Diet: Advance as tolerated Discharge Activity: Limit activity as instructed Patient Instructions: Opioid Safety Activity Restrictions/Additional Instructions: Weight-bear as tolerated on right hip May wean Alonso catheter per prison Okay to shower or sponge bathe Discharge Attestations Time Spent in Discharge Care*: other Quality Metrics Clinical Quality Measures [ No reported AMI, CVA or VTE this stay] Coding Level of Care Code Acute Code for Chg Fwd Diagnoses Status post right hip replacement Z96.641 Urinary retention R33.9
--- NOTE | 2023-02-10 14:01 | PC.NURSE ---
Report called to Sapna Zaldivar RN at [facility]
[2023-02-10 15:12] LABS: SARS Covid-2 Antigen negative (Negative)
== END 2023-02-10 13:20 | disposition skilled nursing facility (03) ==
LOC: MEDSURG 12:05
PROVIDERS: Anesthesiology; Admitting Provider Orthopaedic Surgery; PCP Nurse Practitioner Family; Visit Provider Orthopaedic Surgery
PROC: (CPT 27130; principal; 2023-02-07 09:35)
DX: M16.11 Unilateral primary osteoarthritis, right hip (principal); R33.9 Retention of urine, unspecified; R10.9 Unspecified abdominal pain; I10 Essential (primary) hypertension; E78.5 Hyperlipidemia, unspecified; Z79.01 Long term (current) use of anticoagulants; Z79.899 Other long term (current) drug therapy
CPT/HCPCS: 27130; 36415; 36416; 51702; 51798; 73501; 80048; 82962; 85018; 86850; 86900; 87426; 97110; 97116; 97161; 97167; 97530; 97535; C1776; G0378; J0690; J1170; J1580; J2405; J2704; J3010; J3490; J7030; J7040; J7512

== ENCOUNTER → 2023-03-09 13:17 | Outpatient (BNVA) | payer MEDICARE, MEDICAID, SELFPAY | PROVIDERS: PCP Nurse Practitioner Family; Visit Provider Nurse Practitioner Family | DX: Z96.641 Presence of right artificial hip joint (principal) | CPT/HCPCS: 73502; 99024 ==

== ENCOUNTER → 2023-03-18 08:25 | Outpatient (BNVA) | payer MEDICARE, MEDICAID, SELFPAY | PROVIDERS: PCP Nurse Practitioner Family; Visit Provider Nurse Practitioner Family | DX: L57.0 Actinic keratosis (principal); L40.0 Psoriasis vulgaris; L57.8 Other skin changes due to chronic exposure to nonionizing radiation; D69.2 Other nonthrombocytopenic purpura | CPT/HCPCS: 17000; 17003; 99213 ==

== ENCOUNTER → 2023-05-16 08:46 | Outpatient (BNVA) | payer MEDICARE, MEDICAID, SELFPAY | PROVIDERS: PCP Nurse Practitioner Family; Visit Provider Nurse Practitioner Family | DX: Z96.641 Presence of right artificial hip joint (principal) | CPT/HCPCS: 73502; 99213 ==

== ENCOUNTER → 2023-06-13 12:24 | Outpatient (BNVA) | payer MEDICARE, MEDICAID, SELFPAY | PROVIDERS: PCP Nurse Practitioner Family; Visit Provider Internal Medicine | DX: R07.9 Chest pain, unspecified (principal) | CPT/HCPCS: 93005 ==

== ENCOUNTER → 2023-07-22 09:05 | Outpatient (BNVA) | payer MEDICARE, MEDICAID, SELFPAY | PROVIDERS: PCP Nurse Practitioner Family; Visit Provider Nurse Practitioner Family | DX: L40.0 Psoriasis vulgaris (principal); L57.8 Other skin changes due to chronic exposure to nonionizing radiation; D69.2 Other nonthrombocytopenic purpura; L57.0 Actinic keratosis | CPT/HCPCS: 17000; 99214 ==

== ENCOUNTER → 2023-09-05 12:55 | Outpatient (BNVA) | payer MEDICARE, MEDICAID, SELFPAY | PROVIDERS: PCP Nurse Practitioner Family; Visit Provider Internal Medicine | DX: R07.9 Chest pain, unspecified (principal); Z95.0 Presence of cardiac pacemaker; I48.91 Unspecified atrial fibrillation; Z95.2 Presence of prosthetic heart valve; R94.31 Abnormal electrocardiogram [ECG] [EKG] | CPT/HCPCS: 93005; 99204 ==

== ENCOUNTER → 2024-01-23 09:01 | Outpatient (BNVA) | payer MEDICARE, MEDICAID, SELFPAY | PROVIDERS: PCP Nurse Practitioner Family; Visit Provider Nurse Practitioner Family | DX: L40.0 Psoriasis vulgaris (principal); L57.8 Other skin changes due to chronic exposure to nonionizing radiation; D69.2 Other nonthrombocytopenic purpura; L57.0 Actinic keratosis; C44.319 Basal cell carcinoma of skin of other parts of face | CPT/HCPCS: 11102; 17000; 99214 ==

== ENCOUNTER → 2024-02-13 14:02 | Outpatient (BNVA) | payer MEDICARE, MEDICAID, SELFPAY | PROVIDERS: PCP Nurse Practitioner Family; Visit Provider Dermatology | DX: C44.329 Squamous cell carcinoma of skin of other parts of face (principal) | CPT/HCPCS: 17311 ==

== ENCOUNTER → 2024-02-15 07:56 | Outpatient (BNVA) | payer MEDICARE, MEDICAID, SELFPAY | PROVIDERS: PCP Nurse Practitioner Family; Visit Provider Dermatology | DX: C44.92 Squamous cell carcinoma of skin, unspecified (principal) | CPT/HCPCS: 99214 ==

== ENCOUNTER 2024-03-28 13:40 | Oncology outpatient (recurring) (ONCR) | payer MEDICARE, MEDICAID, SELFPAY ==
--- NOTE | 2024-03-19 13:44 | N.ONRAD NP_ITS ---
Radiation Oncology New Patient Visit Patient: Spencer Cramer MR#: [id number] : 1945> Age: 78> Sex: Male> Dictated by: Dr. 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 Chief Complaint / History of Present Illness: A month ago the patient had a Mohs procedure of a squamous cell carcinoma located on the right voodoo. He had a little bit of difficulty with delayed healing but is here today to discuss postop treatment for deep positive margin and perineural invasion. Subjectively he feels like the area is healed up quite nicely. He has no pain. Current Medications: albuterol sulfate 90 mcg/actuation 1 puff inhalation Q4H PRN allopurinol 300 mg PO DAILY apixaban (Eliquis) 5 mg PO BID aspirin 81 mg PO DAILY baclofen 10 mg PO BID PRN bimatoprost 0.01% (Lumigan) 1 drp ophthalmic (eye) TID celecoxib 200 mg PO DAILY cholecalciferol (vitamin D3) 25 mcg PO DAILY clobetasol 0.05% Apply twice daily to affected areas no more than 2 weeks per month prn diclofenac sodium 1% 4 grams topical QID PRN dorzolamide-timolol 22.3-6.8 mg/mL 1 drp ophthalmic (eye) TID furosemide (Lasix) 20 mg PO DIRECTED gabapentin 600 mg PO DAILY metoclopramide HCl 10 mg PO DAILY@12 [Night Splint As directed] omeprazole 20 mg PO BID polyethylene glycol 3350 alternates with one capful once a day then one-half capful the next day simvastatin 20 mg PO DAILY tamsulosin 0.4 mg PO DAILY trazodone 150 mg PO BEDTIME triamcinolone acetonide 0.1% 1 applic topical TID PRN turmeric root extract 500 mg PO Daily Allergies: NKA Medical History: Asthma Coronary artery disease Degenerative arthritis Atrial fibrillation Hearing aid fitting or adjustment Obesity Dyslipidemia Hypertension. Surgical History: Status post left foot surgery History of coronary artery stent placement Status post left hip replacement Status post surgical removal of malignant neoplasm of skin Status post cardiac pacemaker procedure S/P TAVR (transcatheter aortic valve replacement) Status post right hip replacement Family History: Social History: Current Complaints / Review of Systems: . Vital Signs: Performed on 03/19/2024 1:00 PM BMI - 36.09 kg/m2 (high), Height - 66.5 in, Weight - 227 lbs, Temperature - 97.4 f, Pulse - 80 /min, Respiration - 18 /min, O2 Sat - 93 % (low), Pain - 5, Fatigue - 0 and BP - 158/ 83 mm(hg)(high/). Physical Exam: General patient is in no apparent distress. He is accompanied by his granddaughter HEENT normocephalic atraumatic. Pupils are equal, sclera clear, extraocular muscles intact. Examination of the left voodoo reveals a small scab that measures approximately 5 x 5 mm. The surrounding area appears to be nicely healed with no erythema or drainage Pulmonary: Respiratory rate is regular nonlabored Abdomen: Abdomen is markedly protuberant and android pattern Neurological: Patient is alert and orient x 3. He is riding in her wheelchair. 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 We discussed the daily treatment regiment. We discussed the risks and side effects both acute and long-term. All of his questions were answered. He is actually having more difficulty now with his left knee which he injured while trying to help someone in the elevator about 3 to 4 weeks ago. He has orthopedic appointments coming up to deal with that. At this point he will return to undergo simulation and we will coordinate with his other appointments as needed. Plan for 3-week course of treatment. Signed by: 03/19/2024 1:42:13 PM <<Signature on File>> Time spent with patient:25 CPT Code: CPT Code:
== END 2024-04-01 23:59 | disposition home or self-care (01) ==
PROVIDERS: PCP Nurse Practitioner Family; Visit Provider Radiology Radiation Oncology
DX: C44.329 Squamous cell carcinoma of skin of other parts of face (principal); C44.1222 Squamous cell carcinoma of skin of right lower eyelid, including canthus; L73.8 Other specified follicular disorders; L57.0 Actinic keratosis; L82.1 Other seborrheic keratosis; Z51.0 Encounter for antineoplastic radiation therapy
CPT/HCPCS: 17000; 77290; 77300; 77321; 77334; 99204; 99205; 99214

== ENCOUNTER 2024-03-30 09:45 | Outpatient (CLI) | payer MEDICARE, MEDICAID, SELFPAY | END 2024-03-30 09:46 | disposition home or self-care (01) | LOC: SPT 09:47 | PROVIDERS: PCP Nurse Practitioner Family; Visit Provider Physician Assistant | DX: Z46.89 Encounter for fitting and adjustment of other specified devices (principal); M17.12 Unilateral primary osteoarthritis, left knee | CPT/HCPCS: 97760; L1852 ==

== ENCOUNTER 2024-03-30 13:53 | Outpatient (CLI) | payer MEDICARE, MEDICAID, SELFPAY | END 2024-03-30 13:54 | disposition home or self-care (01) | PROVIDERS: PCP Nurse Practitioner Family; Visit Provider Internal Medicine | DX: Z95.2 Presence of prosthetic heart valve (principal); I48.91 Unspecified atrial fibrillation; C44.92 Squamous cell carcinoma of skin, unspecified; M17.12 Unilateral primary osteoarthritis, left knee | CPT/HCPCS: 73560; 73565; 93306; 99213; 99214 ==

== ENCOUNTER 2024-05-02 07:34 | Oncology outpatient (recurring) (ONCR) | payer MEDICARE, MEDICAID, SELFPAY ==
--- NOTE | 2024-04-04 08:58 | ONCRAD TMN_ITS ---
Radiation Oncology Weekly Treatment Management Patient: Spencer Cramer MR#: [id number] : 1945> Attending Physician: Dr. 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 ID: [id number], Energy: 6E, Dose/Fx (cGy): 200, #Fx: 2 / 15, Dose Correction (cGy): 0, Total Dose Delivered (cGy): 400, Start Date: 04/02/2024, Elapsed Days: 2 Reason for visit: The patient is being seen today as part of their regularly scheduled weekly on treatment visits to assess for acute toxicities from radiotherapy. Review of Systems: Patient has no complaints today. He has noticed no changes. He had no questions. Vital Signs: Performed on 04/04/2024 8:37 AM BMI - 36.138 kg/m2 (high), Height - 66.5 in, Weight - 227.3 lbs, Temperature - 96.5 f, Pulse - 75 /min, Respiration - 16 /min, O2 Sat - 97 %, Pain - 0, Fatigue - 6 and BP - 170/ 81 mm(hg)(high/). Physical Exam: On examination his skin is unchanged imaging: Radiation therapy imaging related to accurate target localization (i.e. KV, MV and CBCT) was reviewed. Appropriate changes, if any, were made to ensure treatment accuracy. Plan: Will continue with his treatments as planned Signed by: Dr. Kami Lemons 04/04/2024 8:57:19 AM
--- NOTE | 2024-04-11 08:49 | ONCRAD TMN_ITS ---
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 ID: [id number], Energy: 6E, Dose/Fx (cGy): 200, #Fx: 5 / 15, Dose Correction (cGy): 0, Total Dose Delivered (cGy): 1,000, Start Date: 04/02/2024, Elapsed Days: 9 Reason for visit: The patient is being seen today as part of their regularly scheduled weekly on treatment visits to assess for acute toxicities from radiotherapy. Review of Systems: 78-year-old male being treated for SCC of the Right Latter Day. He noted this morning some mild bleeding from the area but it is stopped. He denies any other issues at this time. Patient only receives radiation 3 times a week due to transportation issues. Vital Signs: Performed on 04/11/2024 8:42 AM BMI - 35.645 kg/m2 (high), Height - 66.5 in, Weight - 224.2 lbs, Temperature - 96.4 f, Pulse - 82 /min, Respiration - 18 /min, O2 Sat - 98 %, Pain - 5, Fatigue - 0 and BP - 138/ 76 mm(hg). Physical Exam: AAO x 3. Skin intact. Minimal erythema noted. Imaging: Radiation therapy imaging related to accurate target localization (i.e. KV, MV and CBCT) was reviewed. Appropriate changes, if any, were made to ensure treatment accuracy. Plan: Continue XRT. Continue creams. Signed by: Oli Fuentes 04/11/2024 8:47:19 AM
--- NOTE | 2024-04-18 08:32 | ONCRAD TMN_ITS ---
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 ID: [id number], Energy: 6E, Dose/Fx (cGy): 200, #Fx: 8 / 15, Dose Correction (cGy): 0, Total Dose Delivered (cGy): 1,600, Start Date: 04/02/2024, Elapsed Days: 16 Reason for visit: The patient is being seen today as part of their regularly scheduled weekly on treatment visits to assess for acute toxicities from radiotherapy. Review of Systems: This is a pleasant 78-year-old male treated for SCC of the right evangelical. He notes some mild bleeding this morning from the treatment area but it is stopped. He continues use creams daily. He denies any other problems at this time. Receives XRT 3 times a week due to transportation issues and caregiving issues. Vital Signs: Performed on 04/18/2024 8:16 AM BMI - 35.581 kg/m2 (high), Height - 66.5 in, Weight - 223.8 lbs, Temperature - 97 f, Pulse - 88 /min, Respiration - 18 /min, O2 Sat - 93 % (low), Pain - 2, Fatigue - 0 and BP - 148/ 78 mm(hg)(high/). Physical Exam: AAOx3. Skin in RT Taoism area notes crusting /bleeding area. No signs of infection. Imaging: Radiation therapy imaging related to accurate target localization (i.e. KV, MV and CBCT) was reviewed. Appropriate changes, if any, were made to ensure treatment accuracy. Plan: Cont XRT Cont creams in Treatment Area Signed by: Oli Fuentes 04/18/2024 8:32:04 AM
--- NOTE | 2024-04-25 09:22 | ONCRAD TMN_ITS ---
Radiation Oncology Weekly Treatment Management Patient: Spencer Cramer MR#: [id number] : 1945 Attending Physician: Dr. 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 ID: [id number], Energy: 6E, Dose/Fx (cGy): 200, #Fx: , Dose Correction (cGy): 0, Total Dose Delivered (cGy): 2,200, Start Date: 04/02/2024, Elapsed Days: 23 Reason for visit: The patient is being seen today as part of their regularly scheduled weekly on treatment visits to assess for acute toxicities from radiotherapy. Review of Systems: Patient has no complaints in regards to the area of treatment. He is having more difficulty with both of his knees. Vital Signs: Performed on 04/25/2024 8:15 AM BMI - 35.709 kg/m2 (high), Height - 66.5 in, Weight - 224.6 lbs, Temperature - 97.1 f, Pulse - 80 /min, Respiration - 16 /min, O2 Sat - 99 %, Pain - 0, Fatigue - 4 and BP - 141/ 67 mm(hg)(high/). Physical Exam: On exam the skin is erythematous just throughout the field. His eye is also experiencing some increase in conjunctiva erythema. Imaging: Radiation therapy imaging related to accurate target localization (i.e. KV, MV and CBCT) was reviewed. Appropriate changes, if any, were made to ensure treatment accuracy. Plan: I have asked him to continue to care for the skin as he has been doing. We talked about how he only has 4 more treatments. 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 He can use these 2-3 times a day to help soothe his eye. Will otherwise complete his treatments early next week. Signed by: Dr. Kami Lemons 04/25/2024 9:20:36 AM
--- NOTE | 2024-05-02 09:03 | ONCRAD TMN_ITS ---
Radiation Oncology Weekly Treatment Management Patient: Shoaib Palmer> MR#: [id number] : 1945> Attending Physician: Dr. 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 ID: [id number], Energy: 6E, Dose/Fx (cGy): 200, #Fx: 14 / 15, Dose Correction (cGy): 0, Total Dose Delivered (cGy): 2,800, Start Date: 04/02/2024, Elapsed Days: 30 Reason for visit: The patient is being seen today as part of their regularly scheduled weekly on treatment visits to assess for acute toxicities from radiotherapy. Review of Systems: Patient has no complaints and remains in good spirits Vital Signs: Performed on 05/02/2024 8:18 AM BMI - 36.217 kg/m2 (high), Height - 66.5 in, Weight - 227.8 lbs, Temperature - 98.3 f, Pulse - 86 /min, Respiration - 20 /min, O2 Sat - 97 %, Pain - 0, Fatigue - 0 and BP - 165/ 66 mm(hg)(high/). Physical Exam: His skin is erythematous and he has 1 area of dryness that measures about a centimeter in size. The area that had become crusted at the corner of where his incision was previously has actually gotten a little smaller Imaging: Radiation therapy imaging related to accurate target localization (i.e. KV, MV and CBCT) was reviewed. Appropriate changes, if any, were made to ensure treatment accuracy. Plan: Will continue with his last treatment tomorrow. Signed by: Dr. Kami Lemons 05/02/2024 9:02:10 AM
== END 2024-05-02 23:59 | disposition home or self-care (01) ==
PROVIDERS: PCP Nurse Practitioner Family; Visit Provider Radiology Radiation Oncology
DX: Z51.0 Encounter for antineoplastic radiation therapy (principal); C44.329 Squamous cell carcinoma of skin of other parts of face
CPT/HCPCS: 77280; 77336; 77412; 99024

== ENCOUNTER 2024-05-04 07:26 | Oncology outpatient (recurring) (ONCR) | payer MEDICARE, MEDICAID, SELFPAY ==
--- NOTE | 2024-05-07 08:49 | N.ONRD TS_ITS ---
Radiation Oncology Treatment Summary Patient: Spencer Cramer MR#: [id number] : 1945 Age: 78 Sex: Male Dictated by: Dr. 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 ID: [id number], Energy: 6E, Dose/Fx (cGy): 200, #Fx: 15 / 15, Dose Correction (cGy): 0, Total Dose Delivered (cGy): 3,000, Start Date: 04/02/2024, End Date: 05/04/2024, Elapsed Days: 32 Clinical Summary: The patient tolerated RT well. Patient skin became erythematous and 1 small area was dry. He did not develop any moist desquamation. Plan: End of treatment today. Continue on the above medication until the skin reaction resolves. Follow up in one month. Signed by: Dr. Kami Lemons>05/07/2024 8:48:48 AM <<Signature on File>>
== END 2024-06-02 23:59 | disposition home or self-care (01) ==
PROVIDERS: PCP Nurse Practitioner Family; Visit Provider Radiology Radiation Oncology
DX: Z51.0 Encounter for antineoplastic radiation therapy (principal); C44.329 Squamous cell carcinoma of skin of other parts of face
CPT/HCPCS: 77336; 77412; 99024

== ENCOUNTER 2024-05-07 11:19 | Outpatient (CLI) | payer MEDICARE, MEDICAID, SELFPAY ==
--- NOTE | 2024-05-07 11:27 | CT_ITS ---
WS: [id number] CT HEAD TECHNIQUE: Noncontrast and contrast-enhanced CT of the head. CLINICAL INFORMATION: SQUAMOUS CELL CARCINOMA OF SKIN COMPARISON: CT 2013 DLP: 971.[address] scans at [facility] use at least one of these dose optimization techniques: automated e xposure control; mA and/or kV adjustment per patient size (includes targeted exams where dose is matc hed to clinical indication); or iterative reconstruction. FINDINGS: No evidence of intracranial hemorrhage or mass effect. Ventricular system and basal cisterns are fleming nt. Mild small vessel changes. Moderate parenchymal volume loss. Vascular calcification. Normal visua lized dural venous sinuses. Mastoid air cells are well aerated. Mild mucosal thickening in the ethmoi d air cells. No abnormal intracranial enhancement. CT/CT head wo/w con [id number] IMPRESSION: 1. No evidence of intracranial hemorrhage or mass effect. 2. No abnormal intracranial enhancement. 3. Mild small vessel changes. Moderate parenchymal volume loss. 4. Vascular calcification.
--- NOTE | 2024-05-07 11:27 | CT_ITS ---
WS: [id number] CT NECK TECHNIQUE: Contrast-enhanced CT of the neck with coronal and sagittal reformatted images. CLINICAL INFORMATION: SQUAMOUS CELL CARCINOMA OF SKIN COMPARISON: None. DLP: 235.[address] scans at [facility] use at least one of these dose optimization techniques: automated e xposure control; mA and/or kV adjustment per patient size (includes targeted exams where dose is matc hed to clinical indication); or iterative reconstruction. FINDINGS: Paranasal sinuses are well aerated. Mastoid air cells are well aerated. Parotid glands are normal. No rmal submandibular glands. Normal thyroid gland. No evidence of supraglottic or glottic mass. Normal subglottic airway. No cervical lymphadenopathy. Moderate carotid bulb calcification. Mild cervical curve. Advancement spondylitic changes. Anterior hypertrophic changes cervical and thor acic spine. Small disc osteophyte complex at C3-C4 with mild central canal stenosis. Lung apices are well aerated. CT/CT neck w con* [id number] IMPRESSION: 1. No evidence of metastatic disease in the neck. 2. No cervical adenopathy. 3. Normal salivary glands.
[2024-05-07 12:16] LABS: Blood Urea Nitrogen 14 mg/dL (8-23)
[2024-05-07] MEDS: iohexol 350 mg/mL 500 mL Btl (per mL) IV (12:31)
== END 2024-05-07 11:20 | disposition home or self-care (01) ==
LOC: RAD 11:19
PROVIDERS: PCP Nurse Practitioner Family; Visit Provider Dermatology
DX: C44.92 Squamous cell carcinoma of skin, unspecified (principal); I65.23 Occlusion and stenosis of bilateral carotid arteries; G31.89 Other specified degenerative diseases of nervous system
CPT/HCPCS: 70470; 70491; 82565; 84520; Q9967

== ENCOUNTER → 2024-05-09 12:30 | Outpatient (BNVA) | payer MEDICARE, MEDICAID, SELFPAY | PROVIDERS: PCP Nurse Practitioner Family; Visit Provider Dermatology | DX: C44.1222 Squamous cell carcinoma of skin of right lower eyelid, including canthus (principal); L73.8 Other specified follicular disorders; L82.1 Other seborrheic keratosis; L81.4 Other melanin hyperpigmentation; Z92.3 Personal history of irradiation | CPT/HCPCS: 99213 ==

== ENCOUNTER → 2024-05-30 13:19 | Outpatient (BNVA) | payer MEDICARE, MEDICAID, SELFPAY | PROVIDERS: PCP Nurse Practitioner Family; Visit Provider Dermatology | DX: L57.0 Actinic keratosis (principal); C44.1222 Squamous cell carcinoma of skin of right lower eyelid, including canthus; L73.8 Other specified follicular disorders; L82.1 Other seborrheic keratosis; L81.4 Other melanin hyperpigmentation | CPT/HCPCS: 17000; 99213 ==

== ENCOUNTER 2024-06-06 07:39 | Oncology outpatient (recurring) (ONCR) | payer MEDICARE, MEDICAID, SELFPAY ==
--- NOTE | 2024-06-06 08:59 | ONCRAD EPV_ITS ---
Radiation Oncology Established Patient Visit Patient: Spencer Cramer [id number] : 1945 Age: 78 Sex: Male Dictated by: Dr. 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 ID: [id number] Energy: 6E, Dose/Fx (cGy): 200, #Fx: 15 / 15, Dose Correction (cGy): 0, Total Dose Delivered (cGy): 3,000, Start Date: 04/02/2024, End Date: 05/04/2024, Elapsed Days: 32 Current History: Patient returns for his first month check. He is in good spirits. He says the skin is still little tender. He notices that that eye is a little more dry than the opposite side although he does have dry eye on both sides. Current Medications: Allergies: Current Complaints / Review of Systems: . Vital Signs: Performed on 06/06/2024 8:37 AM BMI - 36.154 kg/m2 (high), Height - 66.5 in, Weight - 227.4 lbs, Temperature - 98.6 f, Pulse - 88 /min, Respiration - 18 /min, O2 Sat - 96 %, Pain - 0, Fatigue - 2 and BP - 141/ 71 mm(hg)(high/). Physical Exam: General: Alert and oriented x 3. No acute distress. HEENT: Normocephalic, atraumatic. Extraocular Movements Intact: Pupils Equal, Round, Reactive to Light: Sclerae anicteric. Skin: The area of the treatment portal is just mildly erythematous. The 6 lesion that was previously scabbed over has nearly completely healed. The skin is smooth without nodules or lesions. Performance Status: 90 Lab: None pending. Pathology: Primary, c44.329 - squamous cell carcinoma of skin of other parts of face, Diagnosed 03/28/2024 (active) . Imaging: See HPI Impression: Skin cancer now a month out from completion of treatment Plan: At this point he is recovered from his treatment. He will be following up on a regular basis with dermatology. I have asked him to let us know if there is anything in the future we need to help take care of. Signed by: 06/06/2024 8:58:01 AM <<Signature on File>> Time spent with patient: 15 CPT Code: CPT Code:
== END 2024-07-02 23:59 | disposition home or self-care (01) ==
PROVIDERS: PCP Nurse Practitioner Family; Visit Provider Radiology Radiation Oncology
DX: C44.329 Squamous cell carcinoma of skin of other parts of face; Z92.3 Personal history of irradiation
CPT/HCPCS: 99024

== ENCOUNTER → 2024-06-11 07:47 | Outpatient (BNVA) | payer MEDICARE, MEDICAID, SELFPAY | PROVIDERS: PCP Nurse Practitioner Family; Visit Provider Nurse Practitioner | DX: Z96.641 Presence of right artificial hip joint (principal) | CPT/HCPCS: 73502; 99213 ==

== ENCOUNTER → 2024-06-15 08:11 | Outpatient (BNVA) | payer MEDICARE, MEDICAID, SELFPAY | PROVIDERS: PCP Nurse Practitioner Family; Visit Provider Nurse Practitioner | DX: M70.61 Trochanteric bursitis, right hip (principal); M25.552 Pain in left hip | CPT/HCPCS: 73502; 99212 ==

== ENCOUNTER → 2024-07-06 08:44 | Outpatient (BNVA) | payer MEDICARE, MEDICAID, SELFPAY | PROVIDERS: PCP Nurse Practitioner Family; Visit Provider Student in an Organized Health Care Education/Training Program | DX: M17.12 Unilateral primary osteoarthritis, left knee; M25.561 Pain in right knee; M25.562 Pain in left knee | CPT/HCPCS: 73560; 73565; 99213 ==

== ENCOUNTER 2024-07-13 07:21 | Outpatient (CLI) | payer MEDICARE, MEDICAID, SELFPAY ==
--- NOTE | 2024-07-13 07:44 | XR_ITS ---
WS: [id number] XR chest 2V* [id number] REASON FOR EXAM: WHEEZING FINDINGS: Cardiac device over the left chest with trans left subclavian vein leads to the right atrium and righ t ventricle the heart is mildly enlarged. Aortic stent valve Calcified granulomas disease in both hemithoraces. Chronic appearing oblique linear lung opacities in the left lung base. Segmental atelectasis in the right middle lobe. Chronicity unknown. Calcified granulomas disease bilaterally. No focal lung lesion. No acute pulmonary parenchymal or pleural abnormality. XR/XR chest 2V* [id number] IMPRESSION: Mild cardiomegaly with aortic stent valve. Segmental atelectasis in the right middle lobe.
== END 2024-07-13 07:22 | disposition home or self-care (01) ==
LOC: RAD 07:22
PROVIDERS: PCP Nurse Practitioner Family; Visit Provider Nurse Practitioner Family
DX: J84.10 Pulmonary fibrosis, unspecified (principal); J98.11 Atelectasis; J45.20 Mild intermittent asthma, uncomplicated; Z95.9 Presence of cardiac and vascular implant and graft, unspecified
CPT/HCPCS: 71046

== ENCOUNTER → 2024-07-24 12:44 | Outpatient (BNVA) | payer MEDICARE, MEDICAID, SELFPAY | PROVIDERS: PCP Nurse Practitioner Family; Visit Provider Dermatology | DX: Z92.3 Personal history of irradiation (principal); C44.1222 Squamous cell carcinoma of skin of right lower eyelid, including canthus; L73.8 Other specified follicular disorders; L82.1 Other seborrheic keratosis; L81.4 Other melanin hyperpigmentation; D48.5 Neoplasm of uncertain behavior of skin; L57.0 Actinic keratosis; D23.5 Other benign neoplasm of skin of trunk | CPT/HCPCS: 11102; 17000; 99213 ==

== ENCOUNTER 2024-08-28 11:46 | Outpatient (CLI) | payer MEDICARE, MEDICAID, SELFPAY ==
--- NOTE | 2024-08-28 11:53 | XRR_ITS ---
PROCEDURE INFORMATION: Exam: XR Chest Exam date and time: 08/28/2024 12:01 PM Age: 78 years old Clinical indication: Shortness of breath; Prior surgery; Surgery date: 6+ months; Surgery type: Pacemaker; Patient HX: 6 weeks raspiness in breath, according to patient doctor wanted a follow-up on anomaly imaged 6 weeks ago; Additional info: Mild intermittent asthma, uncomplicated TECHNIQUE: Imaging protocol: Radiologic exam of the chest. Views: 2 views. PA and Lateral COMPARISON: CR XR chest 2V* [id number] 07/13/2024 8:[address] abdomen dated 01/12/2023. FINDINGS: Tubes, catheters and devices: Transcatheter aortic valve replacement device overlies the mediastinum. Left chest pacemaker device is demonstrated. Lungs: Linear interstitial and alveolar density within the right lower chest. This appears similar since July 2024 and new since January 2023. Mild interstitial density in the left lower chest tube lesser extent. The bilateral upper lungs appear clear. Pleural spaces: No pleural effusion. No pneumothorax. Heart/Mediastinum: Mediastinum and jamie appear unremarkable. Vasculature: Mild atherosclerotic calcification demonstrated within the aorta. Bones/joints: Diffusely decreased bone density. Moderate to severe generalized bony degenerative changes. XR/XR chest 2V* [id number] IMPRESSION: 1. Pulmonary atelectasis versus acute infiltrates, pneumonia within the lower lungs bilaterally. Alveolar opacities more prominent within the right lower chest. 2. Degenerative and postsurgical changes are demonstrated, as described above.
== END 2024-08-28 11:47 | disposition home or self-care (01) ==
LOC: RAD 11:48
PROVIDERS: PCP Nurse Practitioner Family; Visit Provider Nurse Practitioner Family
DX: J18.9 Pneumonia, unspecified organism (principal); J98.11 Atelectasis; M85.80 Other specified disorders of bone density and structure, unspecified site; R93.89 Abnormal findings on diagnostic imaging of other specified body structures
CPT/HCPCS: 71046

== ENCOUNTER → 2024-09-10 15:30 | Outpatient (BNVA) | payer MEDICARE, MEDICAID, SELFPAY | PROVIDERS: PCP Nurse Practitioner Family; Visit Provider Internal Medicine | DX: I48.91 Unspecified atrial fibrillation (principal); Z95.2 Presence of prosthetic heart valve; Z95.0 Presence of cardiac pacemaker; Z87.891 Personal history of nicotine dependence; Z79.01 Long term (current) use of anticoagulants | CPT/HCPCS: 99214 ==

== ENCOUNTER → 2024-11-29 12:48 | Outpatient (BNVA) | payer MEDICARE, MEDICAID, SELFPAY | PROVIDERS: PCP Nurse Practitioner Family; Visit Provider Dermatology | DX: C44.1222 Squamous cell carcinoma of skin of right lower eyelid, including canthus (principal); L30.0 Nummular dermatitis; L82.1 Other seborrheic keratosis; D23.5 Other benign neoplasm of skin of trunk; Z92.3 Personal history of irradiation; D48.5 Neoplasm of uncertain behavior of skin; L57.0 Actinic keratosis | CPT/HCPCS: 11104; 17000; 99214 ==

== ENCOUNTER → 2025-02-26 13:02 | Outpatient (BNVA) | payer MEDICARE, MEDICAID, SELFPAY | PROVIDERS: PCP Nurse Practitioner Family; Visit Provider Dermatology | DX: C44.1222 Squamous cell carcinoma of skin of right lower eyelid, including canthus (principal); L57.0 Actinic keratosis; L30.0 Nummular dermatitis; L82.1 Other seborrheic keratosis; D23.5 Other benign neoplasm of skin of trunk; Z92.3 Personal history of irradiation; D48.5 Neoplasm of uncertain behavior of skin | CPT/HCPCS: 11102; 99213 ==

== ENCOUNTER → 2025-03-13 09:14 | Outpatient (BNVA) | payer MEDICARE, MEDICAID, SELFPAY | PROVIDERS: PCP Nurse Practitioner Family; Visit Provider Dermatology | DX: C44.1222 Squamous cell carcinoma of skin of right lower eyelid, including canthus (principal); C44.42 Squamous cell carcinoma of skin of scalp and neck | CPT/HCPCS: 13121; 17311; 99213 ==

== ENCOUNTER → 2025-03-18 14:36 | Outpatient (BNVA) | payer MEDICARE, MEDICAID, SELFPAY | PROVIDERS: PCP Nurse Practitioner Family; Visit Provider Internal Medicine | DX: I48.91 Unspecified atrial fibrillation (principal); Z79.01 Long term (current) use of anticoagulants; Z79.82 Long term (current) use of aspirin; Z95.5 Presence of coronary angioplasty implant and graft; Z95.0 Presence of cardiac pacemaker; Z95.2 Presence of prosthetic heart valve; Z87.891 Personal history of nicotine dependence | CPT/HCPCS: 99214 ==

== ENCOUNTER 2025-03-20 12:40 | Oncology outpatient (recurring) (ONCR) | payer MEDICARE, MEDICAID, SELFPAY ==
[2025-03-20 13:09] LABS: Basophils % 0.2 %; Eosinophils # 0.1 10^3/uL (0.0-0.8); Eosinophils % 2.1 %; Lymphocytes # 2.5 10^3/uL (0.8-4.8); Lymphocytes % 39.5 %; Mean Corpuscular HGB Conc 32.2 g/dL (30-55); Mean Corpuscular Hemoglobin 29.9 pg (27-33); Monocytes # 0.7 10^3/uL (0.2-0.9); Monocytes % 10.5 %; Neutrophils # 2.96 10^3/uL (1.8-7.7); Neutrophils % 47.5 %; Nucleated Red Blood Cells % 0 %; Platelet Count 145 10^3/cmm (157-399); Red Blood Count 4.41 10^6/uL (3.85-5.65); Red Cell Distribution Width 13.9 % (12.1-15.1); White Blood Count 6.22 10^3/uL (3.29-11.43)
[2025-03-20 13:27] LABS: Alanine Aminotransferase 19 U/L (0-41); Albumin Level 3.7 g/dL (3.5-5.2); Alkaline Phosphatase 72 U/L (40-130); Anion Gap 11.5 (5-19); Aspartate Amino Transferase 23 U/L (0-40); Blood Urea Nitrogen 17 mg/dL (8-23); Carbon Dioxide 33 mmol/L (22-29); Chloride 99 mmol/L (98-107); Glucose 110 mg/dL (65-115); Osmolality Calculated 290 mOsm/kg (285-295); Potassium 4.5 mmol/L (3.5-5.1); Sodium 139 mmol/L (136-145); Total Bilirubin 0.4 mg/dL (0.15-1.2); Total Protein 6.7 g/dL (6.6-8.7)
== END 2025-04-01 23:59 | disposition home or self-care (01) ==
PROVIDERS: Nurse Practitioner; PCP Nurse Practitioner Family; Visit Provider Internal Medicine
DX: C44.329 Squamous cell carcinoma of skin of other parts of face (principal); Z87.891 Personal history of nicotine dependence
CPT/HCPCS: 36415; 80053; 85025; 99214

== ENCOUNTER 2025-04-03 12:45 | Oncology outpatient (recurring) (ONCR) | payer MEDICARE, MEDICAID, SELFPAY ==
[2025-04-03 13:12] LABS: Hematocrit 44.3 % (37-53); Hemoglobin 14.00 g/dL (11.27-16.99); Mean Corpuscular HGB Conc 31.6 g/dL (30-55); Mean Corpuscular Hemoglobin 29.9 pg (27-33); Mean Corpuscular Volume 94.5 fl (82-101); Nucleated Red Blood Cells % 0 %; Platelet Count 161 10^3/cmm (157-399); Red Blood Count 4.69 10^6/uL (3.85-5.65); White Blood Count 5.90 10^3/uL (3.29-11.43)
[2025-04-03 13:31] LABS: Alanine Aminotransferase 20 U/L (0-41); Albumin Level 3.7 g/dL (3.5-5.2); Alkaline Phosphatase 69 U/L (40-130); Anion Gap 15.1 (5-19); Aspartate Amino Transferase 22 U/L (0-40); Blood Urea Nitrogen 20 mg/dL (8-23); Calcium 8.9 mg/dL (8.5-10.5); Carbon Dioxide 28 mmol/L (22-29); Chloride 101 mmol/L (98-107); Creatinine Clr Calc Pharmacy 66.8267; Globulin 3.0 g/dL (1.3-4.6); Glucose 91 mg/dL (65-115); Osmolality Calculated 292 mOsm/kg (285-295); Potassium 4.1 mmol/L (3.5-5.1); Sodium 140 mmol/L (136-145); Total Protein 6.7 g/dL (6.6-8.7)
== END 2025-04-03 23:59 | disposition home or self-care (01) ==
PROVIDERS: PCP Nurse Practitioner Family; Visit Provider Internal Medicine
DX: C44.42 Squamous cell carcinoma of skin of scalp and neck (principal); Z87.891 Personal history of nicotine dependence
CPT/HCPCS: 36415; 80053; 85025; 99213

== ENCOUNTER 2025-05-06 07:52 | Outpatient (CLI) | payer MEDICARE, MEDICAID, SELFPAY ==
[2025-05-06 08:15] VITALS: BMI 34.3
--- NOTE | 2025-05-06 09:09 | ECG_ITS ---
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 Interpretive Statements Lung unchanged pre/post procedure; Intraprocedure shortess of breath; Symptoms resoled by discharge PROCEDURE: At the baseline, the EKG revealed possible V paced rhythm. The baseline heart was 70 bpm with a blood pressue of 160/91 mm of Hg Lexiscan was infused over a period of 20 seconds. A total of 0.4 milligrams of Lexiscan was infused. The stress phase was continued for a total of 5 minutes. Heart rate at the end of the stress phase was 72 bpm with a blood pressure 145/71 mm of Hg. The EKG at the peak infusion revealed no significant changes. Sestamibi was injected 20 seconds after the Lexiscan infusion. Heart rate at the end of the recovery phase was 78 bpm with a blood pressure of 157/704mm of Hg. CONCLUSION: 1. The EKG response to Lexiscan infusion is uninterpretable due to the pacing artifact 2. No LexiScan induced chest pain or cardiac arrhythmia 3. Normal blood pressure and heart rate response 4. Sestamibi/sestamibi perfusion scan pending; see separate report. Electronically Signed On 05-14-2025 11:00:19 CDT by King Rodriguez M.D. [email or web address]
--- NOTE | 2025-05-06 09:09 | NMCV_ITS ---
NM miguel perf SPECT r/s* [id number] Spencer Cramer Age: 79 Gender: M : 1945 Exam Date: 05/06/2025 09:26 Ordering Phys: Kt Guzman M.D ([email or web address]) Technologist: POPPY Kelly Exam Location: [facility] Indications: cp STRESS TEST Please [facility] IMAGE PROTOCOL Rest/Stress 1 Lexiscan Day Radiopharmaceutical Dose (mCi) Administration Site Administered by Rest: Tc-99m 10.5 IV Meliza Perez PRACTICE CLINICIAN Sestamibi Stress:Tc-99m 32.6 IV Meliza Salinasgle, PRACTICE CLINICIAN Sestamibi Rest: 06-May-2025 60 Discovery 630 Stress: 06-May-2025 30 Discovery 630 0.4mg Lexiscan. Supine position only as patient was unable to lay prone. Patient was unwilling to try prone postion. Stated he could not breathe while laying on his stomach. SPECT RESULTS Technical Quality: Good Raw Data Analysis: Normal Image Corrections: No attenuation or motion correction applied Summed Stress Score: 9 Summed Rest Score: 12 Summed Difference Score: 0 PERFUSION FINDINGS Moderate area of moderately decreased tracer uptake involving the predominantly in the the inferior wall region with some involvement of the inferolateral and inferoseptal areas. No significant reversibility was noted to this area FUNCTIONAL RESULTS (calculated via Gated SPECT) Stress Image LV EF (%): 43 Stress EDV (mL):109 TID: 1 Stress ESV (mL):62 FUNCTIONAL FINDINGS: Segmental wall motion analysis revealed mild diffuse hypokinesia of LV apex. IMPRESSIONS 1. Myocardial perfusion imaging revealing moderate area of persistent decreased tracer uptake involving the inferior wall region predominantly with some involvement of the inferolateral and inferoseptal segments. These features suggest myocardial scarring predominantly distribution of the right coronary artery with some involvement of the circumflex artery. No significant reema-infarction ischemia 2. LV ejection fraction was estimated to be 43%. 3. LV wall motion analysis revealed mild diffuse hypokinesia of the LV apex 4. Mildly dilated LV cavity with an LV end-systolic volume of 62 mL No similar previous studies are available for comparison Dr King Rodriguez MD [facility] (Electronically Signed) Final Date: 06 May 2025 13:57 S
[2025-05-06 10:34] VITALS: BP 142/84; PULSE 86
== END 2025-05-06 07:53 | disposition home or self-care (01) ==
LOC: CDL 07:57
PROVIDERS: PCP Nurse Practitioner Family; Visit Provider Internal Medicine
DX: R07.9 Chest pain, unspecified (principal); R94.39 Abnormal result of other cardiovascular function study; I51.89 Other ill-defined heart diseases; I51.7 Cardiomegaly; I49.9 Cardiac arrhythmia, unspecified
CPT/HCPCS: 36415; 78452; 93017; 96374; A9500; J2785

== ENCOUNTER 2025-05-17 07:44 | Oncology outpatient (recurring) (ONCR) | payer MEDICARE, MEDICAID, SELFPAY ==
--- NOTE | 2025-05-06 13:30 | USCV_ITS ---
Spencer Cramer Age: 79 Gender: M : 1945 Exam Date: 05/06/2025 14:11 Ordering Phys: Kt Guzman M.D ([email or web address]) Technologist: MARYELLEN Exam Location: [facility] [place] Indication: CP, SoB BP: 120 / 74 HR: 87 Rhythm: Sinus Technical Quality: Adequate MEASUREMENTS (Male / Female) Normal Values 2D ECHO LV Diastolic Diameter PLAX 5.0 cm 4.2 - 5.9 / 3.9 - 5.3 cm IVS Diastolic Thickness 1.1 cm 0.6 - 1.0 / 0.6 - 0.9 cm IVS Systolic Thickness 1.8 cm LVPW Diastolic Thickness 1.3 cm 0.6 - 1.0 / 0.6 - 0.9 cm LVPW Systolic Thickness 1.8 cm LVOT Diameter 2.0 cm LV Ejection Fraction 2D Teich 52.9 % LV Ejection Fraction MOD 4C 45.4 % LV Ejection Fraction MOD 2C 65.5 % LV Ejection Fraction 2C AL 67.0 % LA Diameter 4.6 cm RA Systolic Volume 4C AL 37.9 ml RA Systolic Volume 4C MOD 37.0 ml LA Sys Volume AL 54.2 cm cubed LA Sys Volume Index AL 24.8 cm cubed/m squared Aorta at Sinotubular Diameter 2.5 cm M-MODE LA Ao Ratio MM 2.4 AV Cusp Separation MM 0.9 cm DOPPLER AV Peak Velocity 258.7 cm/s LVOT Peak Velocity 78.0 cm/s AV Area Cont Eq vti 1.0 cm squared AV Area Cont Eq pk 1.0 cm squared MV Peak Velocity 125.0 cm/s MV Area PHT 4.4 cm squared Mitral E to A Ratio 0.6 FINDINGS Left Ventricle Left ventricle is normal in size. LV systolic function is borderline normal with EF of 50-55%. No regional wall motion abnormalities are seen. Grade 1 diastolic dysfunction. Right Ventricle Normal in size and function Right Atrium Normal in size Left Atrium Normal in size Mitral Valve Structurally normal mitral valve. Trace mitral regurgitation. Aortic Valve Bioprosthetic aortic valve. Moderate aortic stenosis with mean gradient across aortic valve of 13mmHg. Tricuspid Valve Grossly normal. Pulmonic Valve Not visualized Pericardium Normal Aorta Normal in size IVC Not visualized CONCLUSIONS LV systolic function is normal with EF of 50-55%. Grade 1 diastolic dysfunction. Trace mitral regurgitation. Moderate aortic stenosis of bioprosthetic aortic valve. Kt Guzman MD (Electronically Signed) Final Date: 07 May 2025 13:01 S
--- NOTE | 2025-05-08 08:45 | ONCRAD TMN_ITS ---
Radiation Oncology Weekly Treatment Management Patient: Spencer Cramer MR#: [id number] : 1945 Attending Physician: Dr. Benjamin Bo Date of Service: 05/08/2025 Referring Physician(s) : Diagnosis: C44.329 - Squamous cell carcinoma of skin of other parts of face, Diagnosed 03/28/2024 (Active) Radiotherapy to date: Course: Scalp 2024, Treatment Site: [place] 6E 40Gy, Ref. ID: [id number], Energy: 6E, Dose/Fx (cGy): 400, #Fx: , Dose Correction (cGy): 0, Total Dose Delivered (cGy): 2,400, Start Date: 04/24/2025, Elapsed Days: 14 Reason for visit: The patient is being seen today as part of their regularly scheduled weekly on treatment visits to assess for acute toxicities from radiotherapy. Review of Systems: Doing well with no complaints. Vital Signs: Performed on 05/08/2025 8:15 AM BMI - 35.232 kg/m2 (high), Height - 66.5 in, Weight - 221.6 lbs, Temperature - 97.4 f, Pulse - 73 /min, Respiration - 17 /min, O2 Sat - 96 %, Pain - 0, Fatigue - 0 and BP - 145/ 72 mm(hg)(high/). Physical Exam: Scalp normal no erythema Imaging: Radiation therapy imaging related to accurate target localization (i.e. KV, MV and CBCT) was reviewed. Appropriate changes, if any, were made to ensure treatment accuracy. Plan: Good tolerance of treatment. Continue as planned. Signed by: Dr. Benjamin Bo 05/08/2025 8:44:41 AM
--- NOTE | 2025-05-15 08:44 | ONCRAD TMN_ITS ---
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 ID: [id number], Energy: 6E, Dose/Fx (cGy): 400, #Fx: 9 / 10, Dose Correction (cGy): 0, Total Dose Delivered (cGy): 3,600, Start Date: 04/24/2025, Elapsed Days: 21 Reason for visit: The patient is being seen today as part of their regularly scheduled weekly on treatment visits to assess for acute toxicities from radiotherapy. Review of Systems: Patient doing well. He is using creams on the treatment site. Patient asked about when he could do a haircut and a he is able to do that now sensors no hair growth in the treatment field. He will complete treatment on May 17. RTC in 1 month or sooner if need be. Vital Signs: Performed on 05/15/2025 8:30 AM BMI - 34.818 kg/m2 (high), Height - 66.5 in, Weight - 219 lbs, Temperature - 97.4 f, Pulse - 76 /min, Respiration - 18 /min, O2 Sat - 96 %, Pain - 0, Fatigue - 0 and BP - 110/ 66 mm(hg). Physical Exam: AAOX3. Skin intact. Mild erythema noted in treatment field. Imaging: Radiation therapy imaging related to accurate target localization (i.e. KV, MV and CBCT) was reviewed. Appropriate changes, if any, were made to ensure treatment accuracy. Plan: Continue XRT. Completes treatment on May 17 RTC in 1 month or sooner if need be. Signed by: Oli Fuentes 05/15/2025 8:41:55 AM
--- NOTE | 2025-05-17 08:47 | N.ONRD TS_ITS ---
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 ID: [id number], Energy: 6E, Dose/Fx (cGy): 200, #Fx: , Dose Correction (cGy): 0, Total Dose Delivered (cGy): 3,000, Start Date: 04/02/2024, End Date: 05/04/2024, Elapsed Days: 32 Course: Scalp 2024, Treatment Site: Scalp 6E 40Gy, Ref. ID: [id number], Energy: 6E, Dose/Fx (cGy): 400, #Fx: , Dose Correction (cGy): 0, Total Dose Delivered (cGy): 4,000, Start Date: 04/24/2025, End Date: 05/17/2025, Elapsed Days: 23 Clinical Summary: The patient tolerated RT well. It is okay for the patient to cut his hair as there is no area in the treatment portal area. Mild erythema in treatment portal Plan: End of treatment today. Continue on the above medication until the skin reaction resolves. Follow up in one month or sooner if need be. Okay to cut hair as no hair is in treatment portal Signed by: Oli Fuentes>05/17/2025 8:46:27 AM <<Signature on File>>
== END 2025-06-02 23:59 | disposition home or self-care (01) ==
PROVIDERS: PCP Nurse Practitioner Family; Visit Provider Radiology Radiation Oncology
DX: Z51.0 Encounter for antineoplastic radiation therapy (principal); C44.329 Squamous cell carcinoma of skin of other parts of face; L53.8 Other specified erythematous conditions; Y84.2 Radiological procedure and radiotherapy as the cause of abnormal reaction of the patient, or of later complication, without mention of misadventure at the time of the procedure
CPT/HCPCS: 36415; 77336; 77412; 78452; 93017; 93306; 96374; 99024; A9500; J2785

== ENCOUNTER → 2025-06-10 08:40 | Outpatient (BNVA) | payer MEDICARE, MEDICAID, SELFPAY | PROVIDERS: PCP Nurse Practitioner Family; Visit Provider Nurse Practitioner | DX: M25.552 Pain in left hip (principal); M54.16 Radiculopathy, lumbar region; Z96.641 Presence of right artificial hip joint | CPT/HCPCS: 73502; 99214 ==

== ENCOUNTER → 2025-06-17 10:53 | Outpatient (BNVA) | payer MEDICARE, MEDICAID, SELFPAY | PROVIDERS: PCP Nurse Practitioner Family; Referring Provider Nurse Practitioner; Visit Provider Nurse Practitioner Family | DX: M54.50 Low back pain, unspecified (principal); G89.29 Other chronic pain | CPT/HCPCS: 72100; 99214 ==

== ENCOUNTER 2025-06-19 07:58 | Oncology outpatient (recurring) (ONCR) | payer MEDICARE, MEDICAID, SELFPAY ==
--- NOTE | 2025-06-19 08:48 | ONCRAD EPV_ITS ---
Radiation Oncology Established Patient Visit Patient: Spencer Cramer [id number] : 1945 Age: 79 Sex: Male Dictated by: Oli Fuentes Date of Service: 06/19/2025 Referring Physician(s) : Dr. Burton Diagnosis: C44.329 - Squamous cell carcinoma of skin of other parts of face, Diagnosed 03/28/2024 (Active) Radiotherapy to Date: Course: right orthodox, Treatment Site: RT [facility] 6E, Ref. ID: [id number], Energy: 6E, Dose/Fx (cGy): 200, #Fx: , Dose Correction (cGy): 0, Total Dose Delivered (cGy): 3,000, Start Date: 04/02/2024, End Date: 05/04/2024, Elapsed Days: 32 Course: Scalp 2024, Treatment Site: Scalp 6E 40Gy, Ref. ID: [id number], Energy: 6E, Dose/Fx (cGy): 400, #Fx: , Dose Correction (cGy): 0, Total Dose Delivered (cGy): 4,000, Start Date: 04/24/2025, End Date: 05/17/2025, Elapsed Days: 23 Current History: This is a pleasant 79-year-old male who had treatment for SCC of a large portion of the vertex of the scalp. It is well-healed and no concerning area. Patient was treated 4000 cGy in 10 fractions completing this on 05/17/2025. Dr. Burton will found another cancer on his right forearm which she is scheduled Mohs for next week. Current Medications: albuterol sulfate 90 mcg/actuation 1 puff inhalation Q4H PRN allopurinol 300 mg PO DAILY amoxicillin 500 mg PO ONCE apixaban (Eliquis) 5 mg PO BID aspirin 81 mg PO DAILY baclofen 10 mg PO BID PRN bimatoprost 0.01% (Lumigan) 1 drp ophthalmic (eye) TID celecoxib 200 mg PO DAILY cholecalciferol (vitamin D3) 25 mcg PO DAILY clobetasol 0.05% Apply twice daily to affected areas no more than 2 weeks per month prn diclofenac sodium 1% (Voltaren Arthritis Pain) 4 grams topical QID diclofenac sodium 1% 4 grams topical QID PRN dorzolamide-timolol 22.3-6.8 mg/mL 1 drp ophthalmic (eye) TID furosemide (Lasix) 20 mg PO DIRECTED gabapentin 600 mg PO DAILY [left knee medial recreation therapy director brace As directed] [medial recreation therapy director brace As directed] meloxicam TAKE 1 TABLET BY MOUTH EVERY DAY metoclopramide HCl 10 mg PO DAILY@12 neomycin-polymyxin B-dexameth 3.5mg/mL-10,000 unit/mL-0.1 % 1 drp ophthalmic (eye) Q8H [Night Splint As directed] omeprazole 20 mg PO BID polyethylene glycol 3350 alternates with one capful once a day then one-half capful the next day prednisone 20 mg PO DAILY simvastatin 20 mg PO DAILY tamsulosin 0.4 mg PO DAILY trazodone 150 mg PO BEDTIME triamcinolone acetonide 0.1% 1 applic topical TID PRN turmeric root extract 500 mg PO DAILY Allergies: NKDA Current Complaints / Review of Systems: . Vital Signs: Performed on 06/19/2025 8:25 AM BMI - 35.041 kg/m2 (high), Height - 66.5 in, Weight - 220.4 lbs, Temperature - 97.5 f, Pulse - 59 /min (low), Respiration - 17 /min, O2 Sat - 96 %, Pain - 0, Fatigue - 0 and BP - 177/ 71 mm(hg)(high/). Physical Exam: General: Alert and oriented x 3. No acute distress. HEENT: Normocephalic, atraumatic. Well-healed vertex of the scalp treatment 1 month ago completing treatment on 05/17/2025. Extraocular Movements Intact: Pupils Equal, Round, Reactive to Light and Accommodation: Sclerae anicteric. Oral cavity is clear without lesions, masses or ulcers. NECK: Supple without supraclavicular or jugular lymphadenopathy. LUNGS: Clear to auscultation bilaterally without rales, rhonchi or wheeze. HEART: Regular rate and rhythm, normal S1 and S2 without murmur, gallop or rub. MUSCULOSKELETAL: No tenderness or percussion pain over the axial skeleton, scapulae or pelvis. ABDOMEN: Soft, nontender, nondistended without masses or organomegaly. Bowell sounds are present. EXTREMITIES: No peripheral edema is identified. Limited motor and sensory examination are grossly intact and symmetric bilaterally. NEUROLOGIC: Cranial nerves II ???XII are grossly intact. Normal sensation, strength 5/5 in all extremities, normal gait, no ataxia. Performance Status: KPS 90 Lab: None pending. Pathology: Primary, c44.329 - squamous cell carcinoma of skin of other parts of face, Diagnosed 03/28/2024 (active) . Imaging: See HPI Impression: SCC VERTEX of the scalp. PLAN: Follow-up with Dr. Burton regarding his right forearm Follow-up with Dr. Maher following his Mohs procedure to the vertex of the scalp as needed. RTC in 3 months or sooner if need be. Signed by: 06/19/2025 8:45:54 AM <<Signature on File>> Time spent with patient: 15 minutes with global fee 15 minutes CPT Code: CPT Code:
== END 2025-07-02 23:59 | disposition home or self-care (01) ==
PROVIDERS: PCP Nurse Practitioner Family; Visit Provider Radiology Radiation Oncology
DX: C44.329 Squamous cell carcinoma of skin of other parts of face (principal)
CPT/HCPCS: 99024

== ENCOUNTER → 2025-06-26 08:30 | Outpatient (BNVA) | payer MEDICARE, MEDICAID, SELFPAY | PROVIDERS: PCP Nurse Practitioner Family; Visit Provider Dermatology | DX: C44.622 Squamous cell carcinoma of skin of right upper limb, including shoulder (principal) | CPT/HCPCS: 11603; 13121 ==

== ENCOUNTER → 2025-07-15 09:00 | Outpatient (BNVA) | payer MEDICARE, MEDICAID, SELFPAY | PROVIDERS: PCP Nurse Practitioner Family; Referring Provider Nurse Practitioner; Visit Provider Nurse Practitioner Family | DX: M54.9 Dorsalgia, unspecified (principal) | CPT/HCPCS: 99214 ==

== ENCOUNTER → 2025-09-16 12:49 | Outpatient (BNVA) | payer MEDICARE, MEDICAID, SELFPAY | PROVIDERS: PCP Nurse Practitioner Family; Visit Provider Internal Medicine | DX: L57.0 Actinic keratosis (principal); L82.1 Other seborrheic keratosis; D23.5 Other benign neoplasm of skin of trunk; Z92.3 Personal history of irradiation; Z08 Encounter for follow-up examination after completed treatment for malignant neoplasm; Z95.2 Presence of prosthetic heart valve; Z95.0 Presence of cardiac pacemaker; I48.91 Unspecified atrial fibrillation | CPT/HCPCS: 99214 ==

== ENCOUNTER 2025-09-18 07:30 | Oncology outpatient (recurring) (ONCR) | payer MEDICARE, MEDICAID, SELFPAY ==
--- NOTE | 2025-09-18 08:33 | ONCRAD EPV_ITS ---
Radiation Oncology Established Patient Visit Patient: Shoaib Palmer [id number] : 1945> Age: 79> Sex: Male> Dictated by: Oli Fuentes Date of Service: 09/18/2025 Referring Physician(s) : Diagnosis: C44.329 - Squamous cell carcinoma of skin of other parts of face, Diagnosed 03/28/2024 (Active) Radiotherapy to Date: Course: right restoration, Treatment Site: RT [facility] 6E, Ref. ID: [id number] Energy: 6E, Dose/Fx (cGy): 200, #Fx: 15 / 15, Dose Correction (cGy): 0, Total Dose Delivered (cGy): 3,000, Start Date: 04/02/2024, End Date: 05/04/2024, Elapsed Days: 32 Course: Scalp 2024, Treatment Site: Scalp 6E 40Gy, Ref. ID: [id number], Energy: 6E, Dose/Fx (cGy): 400, #Fx: 10 / 10, Dose Correction (cGy): 0, Total Dose Delivered (cGy): 4,000, Start Date: 04/24/2025, End Date: 05/17/2025, Elapsed Days: 23 Current History: This is a pleasant 79-year-old male that is 4 months from definitive treatment to the scalp. He denies any new problem other than having recent o resection of a right forearm SCC with clear margins. He is scheduled for 3-month follow-up with Dr. Burton regarding that in the spring. Current Medications: albuterol sulfate 90 mcg/actuation 1 puff inhalation Q4H PRN allopurinol 300 mg PO DAILY apixaban (Eliquis) 5 mg PO BID aspirin 81 mg PO DAILY baclofen 20 mg PO BID 30 days bimatoprost 0.01% (Lumigan) 1 drp ophthalmic (eye) TID celecoxib 200 mg PO DAILY cholecalciferol (vitamin D3) 25 mcg PO DAILY clobetasol 0.05% Apply twice daily to affected areas no more than 2 weeks per month prn diclofenac sodium 1% (Voltaren Arthritis Pain) 4 grams topical QID diclofenac sodium 1% 4 grams topical QID PRN dorzolamide-timolol 22.3-6.8 mg/mL 1 drp ophthalmic (eye) TID furosemide (Lasix) 20 mg PO DIRECTED gabapentin 600 mg PO DAILY [left knee medial food service counter clerk brace As directed] [medial food service counter clerk brace As directed] meloxicam TAKE 1 TABLET BY MOUTH EVERY DAY metoclopramide HCl 10 mg PO DAILY@12 neomycin-polymyxin B-dexameth 3.5mg/mL-10,000 unit/mL-0.1 % 1 drp ophthalmic (eye) Q8H [Night Splint As directed] omeprazole 20 mg PO BID polyethylene glycol 3350 alternates with one capful once a day then one-half capful the next day prednisone 20 mg PO DAILY simvastatin 20 mg PO DAILY tamsulosin 0.4 mg PO DAILY tramadol mg PO BID PRN trazodone 150 mg PO BEDTIME triamcinolone acetonide 0.1% 1 applic topical TID PRN turmeric root extract 500 mg PO DAILY Allergies: No Known Allergies Current Complaints / Review of Systems: . Vital Signs: Performed on 09/18/2025 8:14 AM BMI - 36.726 kg/m2 (high), Height - 66.5 in, Weight - 231 lbs, Temperature - 97.5 f, Pulse - 88 /min, Respiration - 18 /min, O2 Sat - 90 % (low), Pain - 2, Fatigue - 0 and BP - 165/ 75 mm(hg)(high/). Physical Exam: General: Alert and oriented x 3. No acute distress. HEENT: Normocephalic, atraumatic. Extraocular Movements Intact: Pupils Equal, Round, Reactive to Light and Accommodation: Sclerae anicteric. Oral cavity is clear without lesions, masses or ulcers. No abnormalities on the vertex of the scalp. NECK: Supple without supraclavicular or jugular lymphadenopathy. LUNGS: Clear to auscultation bilaterally without rales, rhonchi or wheeze. HEART: Regular rate and rhythm, normal S1 and S2 without murmur, gallop or rub. MUSCULOSKELETAL: No tenderness or percussion pain over the axial skeleton, scapulae or pelvis. ABDOMEN: Soft, nontender, nondistended without masses or organomegaly. Bowell sounds are present. EXTREMITIES: No peripheral edema is identified. Limited motor and sensory examination are grossly intact and symmetric bilaterally. NEUROLOGIC: Cranial nerves II ???XII are grossly intact. Normal sensation, strength 5/5 in all extremities, normal gait, no ataxia. Performance Status: KPS 80 Lab: None pending. Pathology: Primary, c44.329 - squamous cell carcinoma of skin of other parts of face, Diagnosed 03/28/2024 (active) . Imaging: See HPI Impression: SCC of the vertex of the scalp-FRANCK PLAN: RTC in 3 months and if clear, we will have him follow with Dr. Burton. Signed by: 09/18/2025 8:32:46 AM <<Signature on File>> Time spent with patient: 20 minutes to include production of document review of records and examining the patient. CPT Code: CPT Code:
== END 2025-10-02 23:59 | disposition home or self-care (01) ==
LOC: ONCMED 07:30
PROVIDERS: PCP Nurse Practitioner Family; Visit Provider Radiology Radiation Oncology
DX: C44.329 Squamous cell carcinoma of skin of other parts of face (principal); Z92.3 Personal history of irradiation
CPT/HCPCS: 99213